=== PATIENT | female | born 1960 | race Caucasian/White ===

== ENCOUNTER 2021-05-11 18:30 | Inpatient (IN) ==
--- NOTE | 2021-05-11 18:44 | Emergency Department Note ---
Impression & Plan Syncope, Hyponatremia ED Provider Note INFORMANT: Patient ED PROVIDER(S): Brodie Doe MD CHIEF COMPLAINT: Syncope PLAN: Disposition: Admitted Condition: Good Outpatient prescription management: none Referral: None MEDICAL DECISION MAKING: Patient presented because of a syncopal episode. She admitted being out in the heat and described some water prodrome. Clinically she appears dry. She was hydrated. Her ECG did not show any acute findings. Blood work was obtained. She was moderately anemic on CBC but this was consistent with prior. She was found to be profoundly hyponatremic. Because of this the patient will need further evaluation and management in the hospital. Consultation was made with Dr. Bashir Snider, [facility] hospitalist service. Patient was evaluated in the ER and admitted. Triage Nursing notes reviewed and agree them. Vital Signs: reviewed and remarkable for no significant abnormalities Differential diagnosis: Vasovagal event, dehydration, infection, hypoglycemia, electrolyte abnormalities, cardiac sources, intracerebral event, pulmonary embolism, seizure, toxicologic, neurologic, as well as other pathologies. Diagnostics interpreted by me: ECG: Twelve-lead ECG reveals a normal sinus rhythm at 64 bpm. Septal Q waves. No ST elevation or depression. Normal axis and QRS. Cardiac Monitoring: Cardiac monitoring ordered by me: The patient was placed on continuous cardiac monitoring and observed. It revealed a normal sinus rhythm at 68 beats per minute without ectopy or evidence of dysrhythmia. Imaging studies: Deferred HPI: The patient is a 60 year old female who presents to the Emergency Room with complaints of syncope. This started this afternoon after being out in the heat for an hour. Pt with family. Apparently they gave a few rescue breaths but not CPR. EMS noted it was a brief <1min episode. Pt didn't eat or drink today. Had a prodrome. The patient also notes the following associated symptoms, none. Last syncopal episode 5 years ago. The patient has been given no medications for relieving factors. Current pain is rated as 0/10. BSG was normal per EMS. Pt denies headache, fevers, chills, diaphoresis, visual changes, neck pain, chest pain, breathing difficulties, nausea, vomiting, abdominal pain, back pain, melena, hematochezia, urinary symptoms, numbness, weakness, lymphadenopathy, rash, or other complaints. ROS: See above HPI for pertinent positives & negatives. A total of 10 systems reviewed and were otherwise negative. PAST MEDICAL HISTORY:See Below , COPD, type 2 DM PAST SURGICAL HISTORY:See Below, FAMILY HISTORY:See Below SOCIAL HISTORY:See Below, +tobacco HOME MEDICATIONS:See Below ALLERGIES:See Below VITALS:See Below PHYSICAL EXAMINATION: GENERAL: Awake, alert, well-appearing, in no distress HENT: Normocephalic, atraumatic. Oropharynx unremarkable. EYES: Normal conjunctiva. Sclera non-icteric. NECK: Inspection normal. Non-tender. Supple. No nuchal rigidity. FROM. No masses. RESPIRATORY: Clear to auscultation. No wheezes. No rales. Normal respiratory effort. CARDIAC: Normal rate. Normal rhythm. No murmurs. No rubs. Extremities warm and well perfused. Pulses equal. No JVD. GI: Soft, non-distended. No tenderness to palpation. No rebound or guarding. No masses. RECTAL: Deferred. MUSCULOSKELETAL: Atraumatic. Chest examination reveals no tenderness. The back is symmetrical on inspection without obvious abnormality. There is no CVA tenderness to palpation. No joint edema. LOWER EXTREMITIES: Calves are equal size bilaterally and non-tender. No edema. No discoloration. NEURO: Normal sensorium. No sensory or motor deficits noted. SKIN: No rash or jaundice noted. Brodie Doe MD Past Med/Surg History Social History Smoking Status: Current every day smoker Tobacco Type: Cigarettes Feels Safe at Home: Yes Allergies Allergies Allergy/AdvReac Type Severity Reaction Status Date / Time Iodinated Contrast Media Allergy Severe reddness, Verified 05/11/21 19:31 swelling Home Meds Home Medications Medication Instructions Recorded Confirmed aspirin 81 mg PO PM #0 10/17/10 05/11/21 gabapentin 800 mg PO TID #0 tab 08/05/12 05/11/21 atorvastatin 40 mg PO PM #0 07/27/15 05/11/21 melatonin 10 mg PO HS #0 07/27/15 05/11/21 pantoprazole 40 mg PO QAM #0 07/27/15 05/11/21 primidone 50 mg PO TID #0 07/27/15 05/11/21 diphenhydramine HCl [Benadryl] 25 mg PO HS PRN #0 tab 06/13/16 05/11/21 mirtazapine 15 mg PO HS #0 06/13/16 05/11/21 biotin 10,000 mcg PO QAM 05/11/21 05/11/21 lisinopril 10 mg PO QAM 05/11/21 05/11/21 metoprolol succinate 25 mg PO QAM 05/11/21 05/11/21 sertraline 50 mg PO HS 05/11/21 05/11/21 Results & Data (ED) Vital Signs Vital Signs - 24 hr 05/11/21 18:35 05/11/21 18:43 05/11/21 19:30 Temperature 36.8 C Temperature Source Oral Pulse Rate 68 68 64 Pulse Rate from SpO2 Sensor 68 64 Pulse Rhythm Regular Pulse Strength Normal Respiratory Rate 21 20 23 Respiratory Effort / Characteristics Non-Labored Spontaneous Respiratory Depth Normal Respiratory Pattern Regular Blood Pressure 165/80 H 165/80 H 144/69 H Blood Pressure Mean 108 108 94 Blood Pressure Position Lying Pulse Oximetry 97 96 97 Oxygen Delivery Method Room Air Sepsis Recent Fever Within 48 Hours No Sepsis New/Unexplained Change in Mental Status N/A Sepsis Action Taken by Nursing No Action Required 05/11/21 19:48 05/11/21 20:00 05/11/21 20:01 Temperature Temperature Source Pulse Rate 65 63 63 Pulse Rate from SpO2 Sensor Pulse Rhythm Pulse Strength Respiratory Rate 21 16 15 Respiratory Effort / Characteristics Respiratory Depth Respiratory Pattern Blood Pressure 159/83 H Blood Pressure Mean 108 Blood Pressure Position Pulse Oximetry Oxygen Delivery Method Sepsis Recent Fever Within 48 Hours Sepsis New/Unexplained Change in Mental Status Sepsis Action Taken by Nursing 05/11/21 20:30 05/11/21 20:31 05/11/21 21:00 Temperature Temperature Source Pulse Rate 66 66 62 Pulse Rate from SpO2 Sensor Pulse Rhythm Pulse Strength Respiratory Rate 23 22 22 Respiratory Effort / Characteristics Respiratory Depth Respiratory Pattern Blood Pressure 167/88 H 149/74 H Blood Pressure Mean 114 99 Blood Pressure Position Pulse Oximetry Oxygen Delivery Method Sepsis Recent Fever Within 48 Hours Sepsis New/Unexplained Change in Mental Status Sepsis Action Taken by Nursing 05/11/21 21:30 05/11/21 22:00 Temperature Temperature Source Pulse Rate 62 59 L Pulse Rate from SpO2 Sensor 62 59 L Pulse Rhythm Pulse Strength Respiratory Rate 17 16 Respiratory Effort / Characteristics Respiratory Depth Respiratory Pattern Blood Pressure 179/84 H 167/78 H Blood Pressure Mean 115 107 Blood Pressure Position Pulse Oximetry 97 97 Oxygen Delivery Method Sepsis Recent Fever Within 48 Hours Sepsis New/Unexplained Change in Mental Status Sepsis Action Taken by Nursing Laboratory Data Result diagrams: 05/11/21 19:24 05/11/21 19:24 Lab Results 05/11/21 05/11/21 05/11/21 Range/Units 19:24 19:24 19:25 WBC 8.19 (4.8-10.8) K/uL RBC 4.38 (4.2-5.4) M/uL Hgb 9.6 L (12.0-16.0) g/dL Hct 29.9 L (37-47) % MCV 68.3 L (80-100) fL MCH 21.9 L (25-34) pg MCHC 32.1 (32-36) g/dL RDW Std Deviation 42.9 (36.4-46.3) fL RDW Coeff of Lee 17.0 H (11.5-14.5) % Plt Count 260 (130-400) K/uL MPV 8.9 (7.4-10.4) fL Immature Gran % (Auto) 0.2 % Neut % (Auto) 71.4 % Lymph % (Auto) 19.3 % Norton % (Auto) 7.9 % Eos % (Auto) 1.0 % Baso % (Auto) 0.2 % Neut # (Auto) 5.84 (1.4-6.5) K/uL Lymph # (Auto) 1.58 (1.2-3.4) K/uL Norton # (Auto) 0.65 H (0.11-0.59) K/uL Eos # (Auto) 0.08 (0-0.5) K/uL Baso # (Auto) 0.02 (0-0.2) K/uL Immature Gran # (Auto) 0.02 (0.00-0.02) K/uL Microcytosis Present Sodium 123 L (136-145) mmol/L Potassium 3.5 (3.5-5.1) mmol/L Chloride 88 L (98-107) mmol/L Carbon Dioxide 27 (21-32) mmol/L Anion Gap 8.0 (3-11) BUN 5 L (7-18) mg/dl Creatinine 0.70 (0.6-1.2) mg/dl Est Cr Clr Drug Dosing 75.9 ml/min Est GFR ( Amer) 108.4 ml/min Est GFR (Non-Af Amer) 93.5 ml/min BUN/Creatinine Ratio 6.6 L (10-20) Glucose 96 (70-99) mg/dl Osmolality 248 L (280-300) mOsm/kg Calcium 7.4 L (8.5-10.1) mg/dl Magnesium 1.6 L (1.8-2.4) mg/dl Total Bilirubin 0.3 (0.2-1) mg/dl AST 17 (15-37) U/L ALT 12 (12-78) U/L Alkaline Phosphatase 123 H (45-117) U/L Total Protein 6.1 L (6.4-8.2) gm/dl Albumin 3.0 L (3.4-5.0) gm/dl Globulin 3.1 (2.5-4.0) gm/dl Albumin/Globulin Ratio 1.0 (0.9-2) TSH 1.610 (0.300-4.500) uIu/ml Urine Color Urine Appearance (Clear) Urine pH (4.5-7.5) Ur Specific [place] (1.000-1.030) Urine Protein (Negative) Urine Glucose (UA) (Negative) Urine Ketones (Negative) Urine Blood (Negative) Urine Nitrite (Negative) Urine Bilirubin (Negative) Urine Urobilinogen (Negative) Ur Leukocyte Esterase (Negative) Urine WBC (Auto) (0-5) /hpf Urine RBC (Auto) (0-4) /hpf U Hyaline Cast (Auto) (0-5) /lpf U Epithel Cells (Auto) (0-5) /lpf Urine Bacteria (Auto) (Negative) Urine Osmolality (500-800) mOsm/kg Ur Random Sodium mmol/L COVID-19 Eval Order SARS-CoV-2 (PCR) (Negative) 05/11/21 05/11/21 05/11/21 Range/Units 19:50 19:50 19:50 WBC (4.8-10.8) K/uL RBC (4.2-5.4) M/uL Hgb (12.0-16.0) g/dL Hct (37-47) % MCV (80-100) fL MCH (25-34) pg MCHC (32-36) g/dL RDW Std Deviation (36.4-46.3) fL RDW Coeff of Lee (11.5-14.5) % Plt Count (130-400) K/uL MPV (7.4-10.4) fL Immature Gran % (Auto) % Neut % (Auto) % Lymph % (Auto) % Norton % (Auto) % Eos % (Auto) % Baso % (Auto) % Neut # (Auto) (1.4-6.5) K/uL Lymph # (Auto) (1.2-3.4) K/uL Norton # (Auto) (0.11-0.59) K/uL Eos # (Auto) (0-0.5) K/uL Baso # (Auto) (0-0.2) K/uL Immature Gran # (Auto) (0.00-0.02) K/uL Microcytosis Sodium (136-145) mmol/L Potassium (3.5-5.1) mmol/L Chloride (98-107) mmol/L Carbon Dioxide (21-32) mmol/L Anion Gap (3-11) BUN (7-18) mg/dl Creatinine (0.6-1.2) mg/dl Est Cr Clr Drug Dosing ml/min Est GFR ( Amer) ml/min Est GFR (Non-Af Amer) ml/min BUN/Creatinine Ratio (10-20) Glucose (70-99) mg/dl Osmolality (280-300) mOsm/kg Calcium (8.5-10.1) mg/dl Magnesium (1.8-2.4) mg/dl Total Bilirubin (0.2-1) mg/dl AST (15-37) U/L ALT (12-78) U/L Alkaline Phosphatase (45-117) U/L Total Protein (6.4-8.2) gm/dl Albumin (3.4-5.0) gm/dl Globulin (2.5-4.0) gm/dl Albumin/Globulin Ratio (0.9-2) TSH (0.300-4.500) uIu/ml Urine Color Yellow Urine Appearance Clear (Clear) Urine pH 7.0 (4.5-7.5) Ur Specific [place] 1.005 (1.000-1.030) Urine Protein Negative (Negative) Urine Glucose (UA) Negative (Negative) Urine Ketones Negative (Negative) Urine Blood Negative (Negative) Urine Nitrite Negative (Negative) Urine Bilirubin Negative (Negative) Urine Urobilinogen Negative (Negative) Ur Leukocyte Esterase 2+ H (Negative) Urine WBC (Auto) 10-30 H (0-5) /hpf Urine RBC (Auto) 0-4 (0-4) /hpf U Hyaline Cast (Auto) 1-5 (0-5) /lpf U Epithel Cells (Auto) >30 H (0-5) /lpf Urine Bacteria (Auto) 1+ H (Negative) Urine Osmolality 57 L (500-800) mOsm/kg Ur Random Sodium 19 mmol/L COVID-19 Eval Order SARS-CoV-2 (PCR) (Negative) 05/11/21 05/11/21 Range/Units 20:00 20:00 WBC (4.8-10.8) K/uL RBC (4.2-5.4) M/uL Hgb (12.0-16.0) g/dL Hct (37-47) % MCV (80-100) fL MCH (25-34) pg MCHC (32-36) g/dL RDW Std Deviation (36.4-46.3) fL RDW Coeff of Lee (11.5-14.5) % Plt Count (130-400) K/uL MPV (7.4-10.4) fL Immature Gran % (Auto) % Neut % (Auto) % Lymph % (Auto) % Norton % (Auto) % Eos % (Auto) % Baso % (Auto) % Neut # (Auto) (1.4-6.5) K/uL Lymph # (Auto) (1.2-3.4) K/uL Norton # (Auto) (0.11-0.59) K/uL Eos # (Auto) (0-0.5) K/uL Baso # (Auto) (0-0.2) K/uL Immature Gran # (Auto) (0.00-0.02) K/uL Microcytosis Sodium (136-145) mmol/L Potassium (3.5-5.1) mmol/L Chloride (98-107) mmol/L Carbon Dioxide (21-32) mmol/L Anion Gap (3-11) BUN (7-18) mg/dl Creatinine (0.6-1.2) mg/dl Est Cr Clr Drug Dosing ml/min Est GFR ( Amer) ml/min Est GFR (Non-Af Amer) ml/min BUN/Creatinine Ratio (10-20) Glucose (70-99) mg/dl Osmolality (280-300) mOsm/kg Calcium (8.5-10.1) mg/dl Magnesium (1.8-2.4) mg/dl Total Bilirubin (0.2-1) mg/dl AST (15-37) U/L ALT (12-78) U/L Alkaline Phosphatase (45-117) U/L Total Protein (6.4-8.2) gm/dl Albumin (3.4-5.0) gm/dl Globulin (2.5-4.0) gm/dl Albumin/Globulin Ratio (0.9-2) TSH (0.300-4.500) uIu/ml Urine Color Urine Appearance (Clear) Urine pH (4.5-7.5) Ur Specific [place] (1.000-1.030) Urine Protein (Negative) Urine Glucose (UA) (Negative) Urine Ketones (Negative) Urine Blood (Negative) Urine Nitrite (Negative) Urine Bilirubin (Negative) Urine Urobilinogen (Negative) Ur Leukocyte Esterase (Negative) Urine WBC (Auto) (0-5) /hpf Urine RBC (Auto) (0-4) /hpf U Hyaline Cast (Auto) (0-5) /lpf U Epithel Cells (Auto) (0-5) /lpf Urine Bacteria (Auto) (Negative) Urine Osmolality (500-800) mOsm/kg Ur Random Sodium mmol/L COVID-19 Eval Order Covid19 at [facility] SARS-CoV-2 (PCR) NEGATIVE (Negative) Administered Medications Discontinued Medications Sodium Chloride (Nss 1000ml) 1,000 mls @ 999 mls/hr IV .[id number] Stop: 05/11/21 20:00 Last Infusion: 05/11/21 20:21 Dose: 0 mls/hr Documented by: [id number] Admin: 05/11/21 19:10 Dose: 999 mls/hr Documented by: [id number] Magnesium Sulfate/Dextrose (Magnesium Sulfate / D5w) 1 gm in 100 mls @ 100 mls/hr IV NOW STA Stop: 05/11/21 21:14 Last Infusion: 05/11/21 21:05 Dose: 0 mls/hr Documented by: [id number] Admin: 05/11/21 20:20 Dose: 100 mls/hr Documented by: [id number] Lisinopril (Lisinopril 5 Mg Tab) 10 mg PO NOW STA Stop: 05/11/21 20:54 Last Admin: 05/11/21 21:07 Dose: 10 mg Documented by: [id number] Discharge Plan Visit Data Chief Complaint: Syncope ED Provider: Brodie Doe Discharge Problem: Syncope, Hyponatremia Forms Stand Alone Forms: [facility] Prescriptions Prescriptions: No Action aspirin 81 mg Tablet,Delayed Release (Dr/Ec) 81 mg PO PM Qty: 0 RF: 0 gabapentin 800 mg Tablet 800 mg PO TID Qty: 0 RF: 0 atorvastatin 40 mg Tablet 40 mg PO PM Qty: 0 RF: 0 primidone 50 mg Tablet 50 mg PO TID Qty: 0 RF: 0 pantoprazole 40 mg Tablet,Delayed Release (Dr/Ec) 40 mg PO QAM Qty: 0 RF: 0 melatonin 10 mg Tablet 10 mg PO HS Qty: 0 RF: 0 diphenhydramine HCl [Benadryl] 25 mg Capsule 25 mg PO HS PRN (Reason: Sleep) Qty: 0 RF: 0 mirtazapine 15 mg Tablet 15 mg PO HS Qty: 0 RF: 0 sertraline 100 mg tablet 50 mg PO HS RF: 0 lisinopril 10 mg tablet 10 mg PO QAM RF: 0 metoprolol succinate 25 mg tablet extended release 24 hr 25 mg PO QAM RF: 0 biotin 10,000 mcg Tablet,Disintegrating 10,000 mcg PO QAM RF: 0
[2021-05-11] MEDS ORDERED: SODIUM CHLORIDE 0.9% 1000ML 1,000 ML IV SCH (19:00)
[2021-05-11 19:32] LABS: Basophils # (auto) 0.02 K/uL (0-0.2); Basophils % (auto) 0.2 %; Eosinophils # (auto) 0.08 K/uL (0-0.5); Hematocrit (blood only) 29.9 % (37-47); Hemoglobin 9.6 g/dL (12.0-16.0); Immature Granulocytes # (auto) 0.02 K/uL (0.00-0.02); Immature Granulocytes % (auto) 0.2 %; Lymphocytes # (auto) 1.58 K/uL (1.2-3.4); Lymphocytes % (auto) 19.3 %; Mean Corpuscular Hemoglobin 21.9 pg (25-34); Mean Corpuscular Hgb Conc 32.1 g/dL (32-36); Mean Corpuscular Volume 68.3 fL (80-100); Mean Platelet Volume 8.9 fL (7.4-10.4); Monocytes # (auto) 0.65 K/uL (0.11-0.59); Monocytes % (auto) 7.9 %; Neutrophils # (auto) 5.84 K/uL (1.4-6.5); Neutrophils % (auto) 71.4 %; Platelet Count 260 K/uL (130-400); RDW Standard Deviation 42.9 fL (36.4-46.3); Red Blood Count 4.38 M/uL (4.2-5.4); White Blood Count 8.19 K/uL (4.8-10.8)
[2021-05-11 19:55] LABS: BUN Creatinine Ratio 6.6 (10-20); Calcium 7.4 mg/dl (8.5-10.1); Creatinine Clr Calc Pharmacy 75.9 ml/min; Est GFR (African American) 108.4 ml/min; Est GFR (Non-African American) 93.5 ml/min; Magnesium 1.6 mg/dl (1.8-2.4); Potassium 3.5 mmol/L (3.5-5.1)
[2021-05-11 20:02] LABS: Microcytosis Present
[2021-05-11 20:06] LABS: Bilirubin,Total 0.3 mg/dl (0.2-1); Globulin 3.1 gm/dl (2.5-4.0); Thyroid Stimulating Hormone 1.61 uIu/ml (0.300-4.500); Total Protein 6.1 gm/dl (6.4-8.2)
[2021-05-11] MEDS ORDERED: MAGNESIUM SULFATE / D5W 1 GM/100 ML BAG IV STA (20:15)
[2021-05-11] MEDS ORDERED: lisinopril 5 MG TAB PO STA (20:53)
[2021-05-11 22:33] LABS: Appearance Urine Clear (Clear); Bacteria Urine Automated 1+ (Negative); Bilirubin Urine Negative (Negative); Blood Urine Negative (Negative); Color Urine Yellow; Epithelial Cell Urine Auto >30 /lpf (0-5); Glucose Urine UA Negative (Negative); Ketones Urine Negative (Negative); Leukocyte Esterase Urine 2+ (Negative); Nitrite Urine Negative (Negative); Protein Urine Negative (Negative); RBC Urine Automated 0-4 /hpf (0-4); Specific Gravity Urine 1.005 (1.000-1.030); Urobilinogen Urine Negative (Negative)
--- NOTE | 2021-05-11 23:32 | History & Physical Report ---
Date of Service May 11, 2021 Assessment & Plan (1) Syncope: Similar circumstances to 2016 confinement Rule out recurrent orthostasis, cardiac pathology Acute on chronic hyponatremia Possible SIADH concomitant psychogenic polydipsia SSRI intake contributory hypertension, elevated hyperlipidemia, on statin Rx DM2 diet-controlled, well-controlled as of recent hemoglobin A1c of 6.20 February 2021 essential tremor, stable on primidone chronic anemia, hemoglobin at baseline ongoing tobacco abuse Medical telemetry Check orthostatic vitals, update TTE for recurrent syncope Follow serum sodium, fluid restriction Hyponatremia work-up Nephrology consult Re: Acute on chronic hyponatremia Hold SSRI for now ISS BG goal 1 10-1 40 Nicotine patch as needed DVT prophylaxis. Lovenox subcu Full code Patient daughter requesting updates from providers. Mr. Shade Varghese, contact #[phone]. Text document was generated using [employer] voice recognition software. It may contain grammatical or spelling errors. Kindly contact undersigned for clarification of any documentation item in question. History of Present Illness Chief Complaint: Syncope Primary Care Provider: Ella Bhatt, History obtained from patient, family, and records. Medical history significant for hypertension, hyperlipidemia, DM2 diet-con trolled, GERD, essential tremor, chronic hyponatremia, chronic anemia (baseline hemoglobin 9), ongoing tobacco abuse. Last confinement May 2016 for syncope and hyponatremia, possible SIADH. Patient noted to be hypotensive at the ER as per documentation. TTE, EEG unremarkable. Initial serum sodium was noted to be 124. Patient admits to drinking large volumes of free water and ice tea. Patient was with her daughters this afternoon when she had another witnessed syncopal event. Patient was out in the heat for about an hour prior to event as per documentation. Patient family not sure if patient lost pulse or breathing. No witnessed seizures. No incontinence. No abdominal pain, diarrhea, black/bloody stools, dysuria symptoms. Patient admits to drinking more than 48 ounces of water daily along with ice consumption. Patient woke up after 1 minute slightly confused. Patient denies chest pain, S OB. Patient brought to the ER by EMS. Medical History as above Surgical History : Hysteroscopy, ovarian cyst removal, tonsillectomy/adenoidectomy, strabismus surgery Family History : Heart disease, bipolar disorder, stroke Personal/Social history : Half pack daily, no EtOH intake, prior work as a [employer] Allergies Allergy/AdvReac Type Severity Reaction Status Date / Time Iodinated Contrast Media Allergy Severe reddness, Verified 05/11/21 19:31 swelling Home Medications Medication Instructions Recorded Confirmed Type aspirin 81 mg PO PM #0 10/17/10 05/11/21 History gabapentin 800 mg PO TID #0 tab 08/05/12 05/11/21 History atorvastatin 40 mg PO PM #0 07/27/15 05/11/21 History melatonin 10 mg PO HS #0 07/27/15 05/11/21 History pantoprazole 40 mg PO QAM #0 07/27/15 05/11/21 History primidone 50 mg PO TID #0 07/27/15 05/11/21 History diphenhydramine HCl [Benadryl] 25 mg PO HS PRN #0 tab 06/13/16 05/11/21 History mirtazapine 15 mg PO HS #0 06/13/16 05/11/21 History biotin 10,000 mcg PO QAM 05/11/21 05/11/21 History lisinopril 10 mg PO QAM 05/11/21 05/11/21 History metoprolol succinate 25 mg PO QAM 05/11/21 05/11/21 History sertraline 50 mg PO HS 05/11/21 05/11/21 History Past Med/Surg History Medical History Anemia Asthma Chronic hyponatremia Diabetes mellitus, type 2 diet controlled 04/2021 Essential tremor GERD (gastroesophageal reflux disease) Hyperlipidemia Hypertension Major depressive disorder Tobacco abuse Family History Father Hypertension Heart disease Social History Smoking Status: Current every day smoker Tobacco Type: Cigarettes Second Hand Exposure: No; Do You Dip or Chew Tobacco: No; Tobacco Cessation Education Requested by Patient: No Hx Alcohol Use: No Hx Substance Use: No Preferred Language: Romansh Communication Ability: Effective Mix Technician Required: No Beliefs That Will Affect Care: None Current Living Situation: Family Feels Safe at Home: Yes Safety Concerns: Feels Safe At This Time Assistive Devices: Glasses Review of Systems Review of Systems: As per HPI, all 10 systems reviewed, all other ROS negative Physical Exam Physical Exam: GENERAL: Comfortable, pleasant, no respiratory distress SKIN: Pallor, warm HEENT: Bespectacled, Pale palpebral conjunctivae, no ptosis, dry buccal mucosa NECK : Supple, no tenderness CHEST : CTA, no tenderness HEART : RRR, no obvious murmurs ABDOMEN: No distention, nontender EXTREMITIES : No LE swelling/tenderness, no other conspicuous deformities noted NEUROLOGIC : Coherent, no facial asymmetry, no other gross focality Results & Data Results & Data ([facility]) Vital Signs (Past 12 Hours) Vital Signs Temp Pulse Resp BP Pulse Ox 05/11/21 22:00 59 L 16 167/78 H 97 05/11/21 21:30 62 17 179/84 H 97 05/11/21 21:00 62 22 149/74 H 05/11/21 20:31 66 22 05/11/21 20:30 66 23 167/88 H 05/11/21 20:01 63 15 05/11/21 20:00 63 16 159/83 H 05/11/21 19:48 65 21 05/11/21 19:30 64 23 144/69 H 97 05/11/21 18:43 36.8 C 68 20 165/80 H 96 05/11/21 18:35 68 21 165/80 H 97 Laboratory Results Laboratory Results WBC 8.19 K/uL (4.8-10.8) 05/11/21 19:24 RBC 4.38 M/uL (4.2-5.4) 05/11/21 19:24 Hgb 9.6 g/dL (12.0-16.0) L 05/11/21 19:24 Hct 29.9 % (37-47) L 05/11/21 19:24 MCV 68.3 fL (80-100) L 05/11/21 19:24 MCH 21.9 pg (25-34) L 05/11/21 19:24 MCHC 32.1 g/dL (32-36) 05/11/21 19:24 RDW Std Deviation 42.9 fL (36.4-46.3) 05/11/21 19:24 RDW Coeff of Lee 17.0 % (11.5-14.5) H 05/11/21 19:24 Plt Count 260 K/uL (130-400) 05/11/21 19:24 MPV 8.9 fL (7.4-10.4) 05/11/21 19:24 Immature Gran % (Auto) 0.2 % 05/11/21 19:24 Neut % (Auto) 71.4 % 05/11/21 19:24 Lymph % (Auto) 19.3 % 05/11/21 19:24 Cass % (Auto) 7.9 % 05/11/21 19:24 Eos % (Auto) 1.0 % 05/11/21 19:24 Baso % (Auto) 0.2 % 05/11/21 19:24 Neut # (Auto) 5.84 K/uL (1.4-6.5) 05/11/21 19:24 Lymph # (Auto) 1.58 K/uL (1.2-3.4) 05/11/21 19:24 Cass # (Auto) 0.65 K/uL (0.11-0.59) H 05/11/21 19:24 Eos # (Auto) 0.08 K/uL (0-0.5) 05/11/21 19:24 Baso # (Auto) 0.02 K/uL (0-0.2) 05/11/21 19:24 Immature Gran # (Auto) 0.02 K/uL (0.00-0.02) 05/11/21 19:24 Microcytosis Present 05/11/21 19:24 Sodium 123 mmol/L (136-145) L 05/11/21 19:24 Potassium 3.5 mmol/L (3.5-5.1) 05/11/21 19:24 Chloride 88 mmol/L (98-107) L 05/11/21 19:24 Carbon Dioxide 27 mmol/L (21-32) 05/11/21 19:24 Anion Gap 8.0 (3-11) 05/11/21 19:24 BUN 5 mg/dl (7-18) L 05/11/21 19:24 Creatinine 0.70 mg/dl (0.6-1.2) 05/11/21 19:24 Est Cr Clr Drug Dosing 75.9 ml/min 05/11/21 19:24 Est GFR ( Amer) 108.4 ml/min 05/11/21 19:24 Est GFR (Non-Af Amer) 93.5 ml/min 05/11/21 19:24 BUN/Creatinine Ratio 6.6 (10-20) L 05/11/21 19:24 Glucose 96 mg/dl (70-99) 05/11/21 19:24 Osmolality 248 mOsm/kg (280-300) L 05/11/21 19:25 Calcium 7.4 mg/dl (8.5-10.1) L 05/11/21 19:24 Magnesium 1.6 mg/dl (1.8-2.4) L 05/11/21 19:24 Total Bilirubin 0.3 mg/dl (0.2-1) 05/11/21 19:24 AST 17 U/L (15-37) 05/11/21 19:24 ALT 12 U/L (12-78) 05/11/21 19:24 Alkaline Phosphatase 123 U/L (45-117) H 05/11/21 19:24 Total Protein 6.1 gm/dl (6.4-8.2) L 05/11/21 19:24 Albumin 3.0 gm/dl (3.4-5.0) L 05/11/21 19:24 Globulin 3.1 gm/dl (2.5-4.0) 05/11/21 19:24 Albumin/Globulin Ratio 1.0 (0.9-2) 05/11/21 19:24 TSH 1.610 uIu/ml (0.300-4.500) 05/11/21 19:24 Urine Color Yellow 05/11/21 19:50 Urine Appearance Clear (Clear) 05/11/21 19:50 Urine pH 7.0 (4.5-7.5) 05/11/21 19:50 Ur Specific [place] 1.005 (1.000-1.030) 05/11/21 19:50 Urine Protein Negative (Negative) 05/11/21 19:50 Urine Glucose (UA) Negative (Negative) 05/11/21 19:50 Urine Ketones Negative (Negative) 05/11/21 19:50 Urine Blood Negative (Negative) 05/11/21 19:50 Urine Nitrite Negative (Negative) 05/11/21 19:50 Urine Bilirubin Negative (Negative) 05/11/21 19:50 Urine Urobilinogen Negative (Negative) 05/11/21 19:50 Ur Leukocyte Esterase 2+ (Negative) H 05/11/21 19:50 Urine WBC (Auto) 10-30 /hpf (0-5) H 05/11/21 19:50 Urine RBC (Auto) 0-4 /hpf (0-4) 05/11/21 19:50 U Hyaline Cast (Auto) 1-5 /lpf (0-5) 05/11/21 19:50 U Epithel Cells (Auto) >30 /lpf (0-5) H 05/11/21 19:50 Urine Bacteria (Auto) 1+ (Negative) H 05/11/21 19:50 Urine Osmolality 57 mOsm/kg (500-800) L 05/11/21 19:50 Ur Random Sodium 19 mmol/L 05/11/21 19:50 COVID-19 Eval Order Covid19 at [facility] 05/11/21 20:00 SARS-CoV-2 (PCR) NEGATIVE (Negative) 05/11/21 20:00 Diagnostic Findings EKG as per my interpretation : Rate 65, NSR, normal axis, septal infarct, T wave abnormality septal leads
[2021-05-12] MEDS ORDERED: PROMETHAZINE HCL 6.25 MG in SODIUM CHLORIDE 0.9% 50 ML IV PRN (01:12)
[2021-05-12] MEDS ORDERED: GLUCAGON FOR INJ 1 MG VIAL SQ PRN (01:12)
[2021-05-12] MEDS ORDERED: ACETAMINOPHEN 325 MG TAB PO PRN (01:12)
[2021-05-12] MEDS ORDERED: GLUCOSE 10 TABS/TUBE PO PRN (01:12)
[2021-05-12] MEDS ORDERED: DEXTROSE 50% 50 ML SYRINGE IV PRN (01:12)
[2021-05-12] MEDS ORDERED: CARBOHYDRATES FOR HYPOGLYCEMIA PO PRN (01:12)
[2021-05-12] MEDS ORDERED: GLUCOSE 40% GEL 15 GM TUBE PO PRN (01:12)
[2021-05-12] MEDS ORDERED: POTASSIUM CHLORIDE 40 MEQ in DEXTROSE 5% 1,000 ML IV ONE (02:33)
[2021-05-12] MEDS: INSULIN ASPART 100 UNITS/ML 3 ML PEN SC SCH ×5 (03:51→21:37)
[2021-05-12 08:33] LABS: Hematocrit (blood only) 32.3 % (37-47); Hemoglobin 10.3 g/dL (12.0-16.0); Mean Corpuscular Hemoglobin 21.5 pg (25-34); Mean Corpuscular Hgb Conc 31.9 g/dL (32-36); Mean Corpuscular Volume 67.4 fL (80-100); Mean Platelet Volume 9.1 fL (7.4-10.4); Platelet Count 310 K/uL (130-400); RDW Coefficient of Variation 17.6 % (11.5-14.5); RDW Standard Deviation 43.3 fL (36.4-46.3); Red Blood Count 4.79 M/uL (4.2-5.4); White Blood Count 3.13 K/uL (4.8-10.8)
[2021-05-12 08:59] LABS: Calcium 8.8 mg/dl (8.5-10.1); Creatinine Clr Calc Pharmacy 67.3 ml/min; Est GFR (African American) 93.6 ml/min; Est GFR (Non-African American) 80.8 ml/min; Magnesium 2.6 mg/dl (1.8-2.4)
[2021-05-12] MEDS ORDERED: lisinopril 10 MG TAB PO SCH (09:00)
[2021-05-12 09:01] LABS: Eosinophils # (auto) 0.02 K/uL (0-0.5); Eosinophils % (auto) 0.6 %; Immature Granulocytes # (auto) 0.01 K/uL (0.00-0.02); Immature Granulocytes % (auto) 0.3 %; Lymphocytes # (auto) 1.15 K/uL (1.2-3.4); Lymphocytes % (auto) 36.7 %; Microcytosis Present; Monocytes # (auto) 0.37 K/uL (0.11-0.59); Monocytes % (auto) 11.8 %; Neutrophils # (auto) 1.58 K/uL (1.4-6.5); Neutrophils % (auto) 50.6 %; Target Cells 1+
[2021-05-12] MEDS: GABAPENTIN 800 MG TAB PO SCH ×3 (09:19→20:22)
[2021-05-12] MEDS: PANTOprazole 40 MG TAB PO SCH (09:20)
[2021-05-12] MEDS: METOPROLOL SUCC 25MG EXT REL TAB PO SCH (09:21)
[2021-05-12] MEDS: ENOXAPARIN INJ 30 MG/0.3 ML SYR SQ SCH (09:22)
[2021-05-12] MEDS: PRIMIDONE 50 MG TAB PO SCH ×3 (09:22→20:22)
[2021-05-12 10:04] LABS: Potassium 4.1 mmol/L (3.5-5.1)
--- NOTE | 2021-05-12 10:20 | Nephrology Consultation ---
Date of Consultation May 12, 2021 Assessment & Plan (1) Hyponatremia: acute on chronic hyponatremia, correcting too fast. unlikely to have role in syncope; may have role in ambulatory dysfunction/fall though. presenting sNa 123 on 05/11 at 1930, up to 133 this AM at 0800; on D5W w/ 40 mEq K at low rate. TSH wnl. >goal sNa is 129 at noon and hold that value until this evening > upped D5W to 125 mL /hr and lowered K to 20 mEq/L in IVF >> was 131 by 1600 >> will lower IVF rate to 80 ml/hr; same components -cont strict I/O -repeat full bmp for noon, 1600 ordered stat -keep FR for now at 2L; may need to adjust Present on Admission?: Yes (2) Hypokalemia: mild at presentation, improving and rightly normalized to improve Na correction and minimize cardiac arrhythmias if present Present on Admission?: Yes (3) Syncope: w/u per primary service Present on Admission?: Yes History of Present Illness Reason for Consultation: hyponatremia Requesting Physician: Dr Snider Attending Physician: Guille Snow DO History of Present Illness 60 y/o F admitted last evening after witnessed syncope and found to have sNa 123 at 1930. PMH includes active tobacco abuse about 2-3 PPD (rolls her own; difficult to count), depression/anxiety, HTN, HL. Chronic hyponatremia w/ sNa in epic usually in low 130s 2015 through February 2021 w/ admission 2016 for same. Rep ortedly has had similar syncopal episodes in [place] past, including at work 2 years back and on stairs; cannot recall if these were a/w hyponatremia. 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 she was at a family event and slumped over in her chair, stopped breathing, LOC x 1 minute per family. Daughter at bedside today and sister on phone at my eval. at baseline pt has been drinking lots of fluids (about a gallon) daily often iced tea and some water; eats minimally - maybe a TV dinner daily. not for lack of hunger or inability to get food she states; denies weight loss. no EtOH. no increased abd girth; no sob; no edema. Admission data remarkable for sOsm 248, uOsm 57, Jeff 19, K 3.5. Allergies Allergy/AdvReac Type Severity Reaction Status Date / Time Iodinated Contrast Media Allergy Severe reddness, Verified 05/11/21 19:31 swelling Home Medications Medication Instructions Recorded Confirmed Type aspirin 81 mg PO PM #0 10/17/10 05/11/21 History gabapentin 800 mg PO TID #0 tab 08/05/12 05/11/21 History atorvastatin 40 mg PO PM #0 07/27/15 05/11/21 History melatonin 10 mg PO HS #0 07/27/15 05/11/21 History pantoprazole 40 mg PO QAM #0 07/27/15 05/11/21 History primidone 50 mg PO TID #0 07/27/15 05/11/21 History diphenhydramine HCl [Benadryl] 25 mg PO HS PRN #0 tab 06/13/16 05/11/21 History mirtazapine 15 mg PO HS #0 06/13/16 05/11/21 History biotin 10,000 mcg PO QAM 05/11/21 05/11/21 History lisinopril 10 mg PO QAM 05/11/21 05/11/21 History metoprolol succinate 25 mg PO QAM 05/11/21 05/11/21 History sertraline 50 mg PO HS 05/11/21 05/11/21 History Patient History Medical History Anemia Asthma Chronic hyponatremia Diabetes mellitus, type 2 diet controlled 04/2021 Essential tremor GERD (gastroesophageal reflux disease) Hyperlipidemia Hypertension Major depressive disorder Tobacco abuse Family History Father Hypertension Heart disease Social History Smoking Status: Current every day smoker Tobacco Type: Cigarettes Second Hand Exposure: No; Do You Dip or Chew Tobacco: No; Tobacco Cessation Education Requested by Patient: No Hx Alcohol Use: No Hx Substance Use: No Preferred Language: [place] Communication Ability: Effective [employer] Required: No Beliefs That Will Affect Care: None Current Living Situation: Family Feels Safe at Home: Yes Safety Concerns: Feels Safe At This Time Assistive Devices: None Review of Systems Review of Systems: All systems reviewed & are unremarkable except as noted in HPI & below Physical Exam Constitutional: well developed and well nourished; no acute distress on RA, smal framed Eyes: EOM intact bilaterally ENMT: Ears: no external ear abnormality Nose: no external nose abnormality Mouth: + dry oral mucous membranes Neck: no nuchal rigidity Respiratory: normal respiratory effort Auscultation: + diminished lung sounds and + crackles (bibasilar) Cardiovascular: RRR, no murmur, no edema Gastrointestinal (Abdomen): Inspection/Auscultation: normal bowel sounds Percussion/Palpation: abdomen soft; abdomen nontender Musculoskeletal: Extremities: strength 5/5 throughout Skin: no rashes, warm and dry Neurologic: cabrera, fluent speech, no tremor Psychiatric: Orientation: alert and oriented x 3 Results & Data ([facility]) Vital Signs (Past 12 Hours) Vital Signs Temp Pulse Pulse Pulse Resp BP BP 05/12/21 08:00 37 C 69 18 129/79 05/12/21 04:06 37.0 C 63 18 114/62 05/12/21 02:40 36.5 C 76 16 133/74 05/12/21 01:58 59 L 05/12/21 00:36 62 18 114/74 Pulse Ox 05/12/21 08:00 96 05/12/21 04:06 100 05/12/21 02:40 98 05/12/21 01:58 05/12/21 00:36 Laboratory Results 05/12/21 08:10 05/12/21 08:10 admission labs and urine indices as above (1) Syncope Syncope type: unspecified Qualified Code(s): R55 - Syncope and collapse
[2021-05-12] MEDS: POTASSIUM CHLORIDE 20 MEQ in DEXTROSE 5% 1,000 ML IV SCH ×2 (10:55→19:13)
--- NOTE | 2021-05-12 11:57 | Hospitalist Progress Note ---
Date of Service May 12, 2021 Assessment & Plan (1) Syncope: Similar circumstances to 2016 Rule out recurrent orthostasis, cardiac pathology Acute on chronic hyponatremia Possible SIADH concomitant psychogenic polydipsia SSRI intake contributory hypertension, elevated hyperlipidemia, on statin Rx DM2 diet-controlled, well-controlled as of recent hemoglobin A1c of 6.20 February 2021 essential tremor, stable on primidone chronic anemia, hemoglobin at baseline ongoing tobacco abuse Medical telemetry Check orthostatic vitals, update TTE for recurrent syncope Follow serum sodium, fluid restriction Hyponatremia work-up Nephrology on case: Acute on chronic hyponatremia Hold SSRI for now ISS BG goal 1 10-1 40 Nicotine patch as needed DVT prophylaxis. Lovenox subcu Full code Labs checked ROS-No Headache, No Visual Changes, No Nausea, No Vomiting, No Fever, No Chills, No Neck Pain or Stiffness, No Chest Pain, No Palpitations, No SOB, No HERNANDEZ, No Cough, No Sputum, No Wheezing, No Abdominal Pain, No Diarrhea, No Hematemesis, No Hemoptysis, No Unexpected Weight Loss, No Flank pain, No Melena, No Hematochezia, No Frequency, No Urgency, No Burning, No Hematuria, No Rashes, No Diaphoresis. Appetite is Normal Physical Exam Gen-AAO x 3, NAD, Afebrile Head-NCAT, EOMI, PERRLA, Anicteric Sclera, No Posterior Pharyngeal Erythema Neck-Supple, No JVD, No Thyromegaly, No Masses, No LAD, No Bruits Lungs-Clear to Auscultation Bilaterally, No Rales, No Rhonchi, No Wheezing, No Crepitus Chest-No S4, +S1, +S2, No S3, No Murmurs, No Rubs, No Gallops, No Ectopy Abdomen-Soft, Bowel Sounds Present, Non Tender, Non Distended, No Hepatomegaly, No Splenomegaly, No Palpable Masses, No Rebound, No Rigidity, No Guarding Musculoskeletal-Full Range of Motion Bilaterally, No CVAT Extremities-No Cyanosis, No Clubbing, No Edema Nuero-Cranial Nerves II-XII grossly intact, Motor WNL, DTRs WNL, Strength WNL, Non Focal Psych-Normal Mood Admission and Anticipated Discharge Date Admission Date: May 11, 2021 Results & Data Results & Data ([facility]) Vital Signs (Past 12 Hours) Vital Signs Temp Pulse Pulse Pulse Resp BP BP 05/12/21 11:24 36.8 C 64 18 116/67 05/12/21 08:00 37 C 69 18 05/12/21 04:06 37.0 C 63 18 05/12/21 02:40 36.5 C 76 16 05/12/21 01:58 59 L 05/12/21 00:36 62 18 114/74 BP Pulse Ox 05/12/21 11:24 94 05/12/21 08:00 129/79 96 05/12/21 04:06 114/62 100 05/12/21 02:40 133/74 98 05/12/21 01:58 05/12/21 00:36 (1) Syncope Syncope type: unspecified Qualified Code(s): R55 - Syncope and collapse
[2021-05-12 12:19] LABS: BUN Creatinine Ratio 6.6 (10-20); Calcium 8.7 mg/dl (8.5-10.1); Est GFR (African American) 96.6 ml/min; Est GFR (Non-African American) 83.3 ml/min; Potassium 4.3 mmol/L (3.5-5.1)
--- NOTE | 2021-05-12 14:11 | Electrocardiogram Report ---
Test Reason : Blood Pressure : / mmHG Vent. Rate : 064 BPM Atrial Rate : 064 BPM P-R Int : 192 ms QRS Dur : 090 ms QT Int : 460 ms P-R-T Axes : 072 003 057 degrees QTc Int : 474 ms Normal sinus rhythm Septal infarct (cited on or before 13-JUN-2016) Abnormal ECG When compared with ECG of 13-JUN-2016 07:28, QRS axis Shifted right Confirmed by Ortega Sr ([id number]) on 05/12/2021 2:11:23 PM Referred By: REFERRED SELF Confirmed By:Ortega Sr
[2021-05-12 16:17] LABS: BUN Creatinine Ratio 8.4 (10-20); Calcium 8.5 mg/dl (8.5-10.1); Creatinine Clr Calc Pharmacy 37.2 ml/min; Est GFR (African American) 45.7 ml/min; Est GFR (Non-African American) 39.4 ml/min; Potassium 4.2 mmol/L (3.5-5.1)
--- NOTE | 2021-05-12 19:16 | Communication Note ---
Date of Service: May 12, 2021 Serum creatinine this afternoon noted to be 1.43 AP ARF Hold lisinopril for now
[2021-05-12] MEDS ORDERED: ALBUMIN 25% 12.5 GM/50 ML VIAL IV ONE (19:30)
--- NOTE | 2021-05-12 20:06 | XRay Report ---
SINGLE VIEW CHEST CLINICAL HISTORY: Acute renal insufficiency. FINDINGS: An AP, portable, upright chest radiograph is compared to study dated 06/13/2016. A hiatal he rnia is noted. The cardiomediastinal silhouette is unremarkable noting atherosclerotic calcification of the thoracic aorta. Chronic interstitial thickening is similar to previous. No airspace consolidat ion or large pleural effusion is identified. No pneumothorax is seen. The skeletal structures are ost eopenic. The bony thorax is grossly intact. IMPRESSION: 1. No active disease in the chest. 2. Hiatal hernia. ACT 112: Negative or not required by law. Electronically signed by: Anton Denis M.D. 05/12/2021 8:05 PM
[2021-05-12 20:20] LABS: BUN Creatinine Ratio 13.5 (10-20); Calcium 8.6 mg/dl (8.5-10.1); Est GFR (African American) 60.7 ml/min; Est GFR (Non-African American) 52.4 ml/min; Potassium 4.5 mmol/L (3.5-5.1)
[2021-05-12] MEDS ORDERED: MELATONIN 3 MG TAB PO SCH (21:00)
[2021-05-12] MEDS ORDERED: MIRTAZAPINE TAB 15 MG TAB PO SCH (21:00)
[2021-05-12] MEDS ORDERED: ASPIRIN 81 MG ECTAB PO SCH (21:00)
[2021-05-12] MEDS ORDERED: ATORVASTATIN 40 MG TAB PO SCH (21:00)
[2021-05-13 06:27] LABS: Hematocrit (blood only) 30.9 % (37-47); Hemoglobin 9.6 g/dL (12.0-16.0); Mean Corpuscular Hemoglobin 21.4 pg (25-34); Mean Corpuscular Hgb Conc 31.1 g/dL (32-36); Mean Corpuscular Volume 68.8 fL (80-100); Mean Platelet Volume 9.2 fL (7.4-10.4); Platelet Count 289 K/uL (130-400); RDW Coefficient of Variation 17.5 % (11.5-14.5); RDW Standard Deviation 44.6 fL (36.4-46.3); Red Blood Count 4.49 M/uL (4.2-5.4); White Blood Count 4.17 K/uL (4.8-10.8)
[2021-05-13 07:03] LABS: Albumin Level 3.4 gm/dl (3.4-5.0); Calcium 8.9 mg/dl (8.5-10.1); Creatinine Clr Calc Pharmacy 62.5 ml/min; Est GFR (African American) 85.7 ml/min; Potassium 4.4 mmol/L (3.5-5.1)
[2021-05-13 07:06] LABS: Bilirubin,Total 0.2 mg/dl (0.2-1); Globulin 3.3 gm/dl (2.5-4.0); Total Protein 6.7 gm/dl (6.4-8.2)
[2021-05-13] MEDS: GABAPENTIN 800 MG TAB PO SCH (08:04)
[2021-05-13] MEDS: ENOXAPARIN INJ 30 MG/0.3 ML SYR SQ SCH (08:04)
[2021-05-13] MEDS: PRIMIDONE 50 MG TAB PO SCH (08:04)
[2021-05-13] MEDS: PANTOprazole 40 MG TAB PO SCH (08:05)
[2021-05-13] MEDS: INSULIN ASPART 100 UNITS/ML 3 ML PEN SC SCH (08:15)
[2021-05-13] MEDS: METOPROLOL SUCC 25MG EXT REL TAB PO SCH (10:01)
--- NOTE | 2021-05-13 10:27 | Nephrology Progress Note ---
Date of Service May 13, 2021 Assessment & Plan (1) Hyponatremia: acute on chronic hyponatremia, initially corrected too fast but now appropriate. unlikely to have role in syncope; may have role in ambulatory dysfunction/fall though. Polydipsia acutely and suspect chronically low solute diet driving hypotonic hyponatremia; presumptive structural lung disease in this long-term smoker may a lso have a role presenting sNa 123 on 05/11 at 1930, up to 133 May 12 AM at 0800; maintained in the 1 31-1 33 range since then with D5 water. TSH wnl. Reasonable from renal standpoint for hospital discharge (d/c summary updated) Basic metabolic panel to be ordered weekly until clinic follow-up <<my CKD clinic nurses will place these orders Okay to resume lisinopril at hospital discharge Discharge on fluid limit 60 ounces daily; may have up to 90 ounces if out in heat > Follow-up with me or my partner [facility] clinic in 6 to 8 weeks -avoid/minimize nsaids at d/c apart from 81 mg daily aspirin care coordinated w/ Dr Snow (2) Hypokalemia: Resolved (3) Syncope: w/u per primary service Admission and Anticipated Discharge Date Admission Date: May 11, 2021 Subjective no interval events ON; has no N, no sob, no edema, no ambulatory concerns, no new or worrisome voiding issues; creatinine did bump to 1.4 yesterday afternoon, improved to 0.9 this morning Review of Systems Review of Systems: All systems reviewed & are unremarkable except as noted in Subjective Physical Exam Constitutional: well developed and well nourished; no acute distress Eyes: EOM intact bilaterally ENMT: Ears: no external ear abnormality Nose: no external nose abnormality Mouth: + dry oral mucous membranes Neck: no nuchal rigidity Respiratory: normal respiratory effort Auscultation: lungs clear to auscultation bilaterally and + diminished lung sounds Cardiovascular: RRR, no murmur, no edema Gastrointestinal (Abdomen): Inspection/Auscultation: normal bowel sounds Percussion/Palpation: abdomen soft; abdomen nontender Musculoskeletal: Extremities: strength 5/5 throughout Skin: no rashes, warm and dry Neurologic: Speech / Cognition: normal cognition Motor/Sensory: normal movement Psychiatric: Orientation: alert and oriented x 3 Results & Data ([facility]) Vital Signs (Past 12 Hours) Vital Signs Temp Pulse Pulse Resp BP Pulse Ox 05/13/21 07:35 61 05/13/21 06:56 36.7 C 91 H 18 145/76 H 91 05/13/21 05:14 36.5 C 63 18 110/61 94 05/12/21 23:19 36.6 C 54 L 20 110/64 94 Laboratory Results 05/13/21 06:04 05/13/21 06:04 (1) Syncope Syncope type: unspecified Qualified Code(s): R55 - Syncope and collapse
--- NOTE | 2021-05-13 10:33 | Discharge Summary ---
Date of Service May 13, 2021 Admission HPI Per Admitting Provider History obtained from patient, family, and records. Medical history significant for hypertension, hyperlipidemia, DM2 diet- controlled, GERD, essential tremor, chronic hyponatremia, chronic anemia (baseline hemoglobin 9), ongoing tobacco abuse. Last confinement May 2016 for syncope and hyponatremia, possible SIADH. Patient noted to be hypotensive at the ER as per documentation. TTE, EEG unremarkable. Initial serum sodium was noted to be 124. Patient admits to drinking large volumes of free water and ice tea. Patient was with her daughters this afternoon when she had another witnessed syncopal event. Patient was out in the heat for about an hour prior to event as per documentation. Patient family not sure if patient lost pulse or breathing. No witnessed seizures. No incontinence. No abdominal pain, diarrhea, black/bloody stools, dysuria symptoms. Patient admits to drinking more than 48 ounces of water daily along with ice consumption. Patient woke up after 1 minute slightly confused. Patient denies chest pain, S OB. Patient brought to the ER by EMS. Medical History as above Surgical History : Hysteroscopy, ovarian cyst removal, tonsillectomy/adenoidec nova, strabismus surgery Family History : Heart disease, bipolar disorder, stroke Personal/Social history : Half pack daily, no EtOH intake, prior work as a [employer] Admission Exam Per Admitting Provider GENERAL: Comfortable, pleasant, no respiratory distress SKIN: Pallor, warm HEENT: Bespectacled, Pale palpebral conjunctivae, no ptosis, dry buccal mucosa NECK : Supple, no tenderness CHEST : CTA, no tenderness HEART : RRR, no obvious murmurs ABDOMEN: No distention, nontender EXTREMITIES : No LE swelling/tenderness, no other conspicuous deformities noted NEUROLOGIC : Coherent, no facial asymmetry, no other gross focality Principal Diagnosis Syncope: Acute on chronic hyponatremia hypertension hyperlipidemia DM2 essential tremor chronic anemia ongoing tobacco abuse Discharge Exam See below Discharge Data Allergies Allergy/AdvReac Type Severity Reaction Status Date / Time Iodinated Contrast Media Allergy Severe reddness, Verified 05/11/21 19:31 swelling Consultations 05/11/21 20:29 ED Decision to Admit Stat 05/12/21 01:12 Consult Nephrology Routine Current Diagnoses Hypo-osmolality and hyponatremia (05/11/21) Hypokalemia (05/11/21) Syncope and collapse (05/11/21) Allergies Iodinated Contrast Media Allergy (Severe, Verified 05/11/21 19:31) reddness, swelling Height/Weight/Isolation Height 5 ft 5 in Weight 58.9 kg Chemistry 05/11/21 05/12/21 05/12/21 19:24 01:29 08:10 Sodium 123 L 135 L D 133 L Potassium 3.5 4.1 D Chloride 88 L 100 Carbon Dioxide 27 27 Anion Gap 8.0 6.0 BUN 5 L 5 L Creatinine 0.70 0.79 Glucose 96 100 H 05/12/21 05/12/21 05/12/21 11:54 15:46 19:43 Sodium 132 L 131 L 130 L Potassium 4.3 4.2 4.5 Chloride 100 99 98 Carbon Dioxide 30 27 26 Anion Gap 2.0 L 6.0 6.0 BUN 5 L 12 D 15 Creatinine 0.77 1.43 H D 1.13 D Glucose 115 H 106 H 99 05/13/21 05/13/21 00:29 06:04 Sodium 132 L 131 L Potassium 4.4 Chloride 99 Carbon Dioxide 28 Anion Gap 4.0 BUN 12 Creatinine 0.85 Glucose 99 Urinalysis 05/11/21 19:50 Urine Color Yellow Urine Appearance Clear Urine pH 7.0 Ur Specific Maxwell 1.005 Urine Protein Negative Urine Glucose (UA) Negative Urine Ketones Negative Urine Blood Negative Urine Nitrite Negative Urine Bilirubin Negative Microbiology 05/11/21 19:50 Urine,Clean Catch Urine Culture - Pending Hospital Course (1) Syncope: Similar circumstances to 2016 confinement Rule out recurrent orthostasis, cardiac pathology Acute on chronic hyponatremia Possible SIADH concomitant psychogenic polydipsia SSRI intake contributory hypertension, elevated hyperlipidemia, on statin Rx DM2 diet-controlled, well-controlled as of recent hemoglobin A1c of 6.20 February 2021 essential tremor, stable on primidone chronic anemia, hemoglobin at baseline ongoing tobacco abuse Check orthostatic vitals, update TTE for recurrent syncope DC home today ISS BG goal 110-140 Nicotine patch as needed DVT prophylaxis. Lovenox subcu Full code ROS-No Headache, No Visual Changes, No Nausea, No Vomiting, No Fever, No Chills, No Neck Pain or Stiffness, No Chest Pain, No Palpitations, No SOB, No HERNANDEZ, No Cough, No Sputum, No Wheezing, No Abdominal Pain, No Diarrhea, No Hematemesis, No Hemoptysis, No Unexpected Weight Loss, No Flank pain, No Melena, No Hematochezia, No Frequency, No Urgency, No Burning, No Hematuria, No Rashes, No Diaphoresis. Appetite is Normal Physical Exam Gen-AAO x 3, NAD, Afebrile Head-NCAT, EOMI, PERRLA, Anicteric Sclera, No Posterior Pharyngeal Erythema Neck-Supple, No JVD, No Thyromegaly, No Masses, No LAD, No Bruits Lungs-Clear to Auscultation Bilaterally, No Rales, No Rhonchi, No Wheezing, No Crepitus Chest-No S4, +S1, +S2, No S3, No Murmurs, No Rubs, No Gallops, No Ectopy Abdomen-Soft, Bowel Sounds Present, Non Tender, Non Distended, No Hepatomegaly, No Splenomegaly, No Palpable Masses, No Rebound, No Rigidity, No Guarding Musculoskeletal-Full Range of Motion Bilaterally, No CVAT Extremities-No Cyanosis, No Clubbing, No Edema Nuero-Cranial Nerves II-XII grossly intact, Motor WNL, DTRs WNL, Strength WNL, Non Focal Psych-Normal Mood Total Time Total Time Spent Total Time Spent (In Minutes): 45 mins Total Time Includes: Examination of the Patient, Discharge Planning, Medication Reconciliation and Communication With Other Providers Discharge Plan Discharge Items Patient Disposition: Home - Self-Care Reason For Visit: HYPONATREMIA, RECURRENT SYNCOPE Discharge Diagnosis: Syncope: Acute on chronic hyponatremia hypertension hyperlipidemia DM2 essential tremor chronic anemia ongoing tobacco abuse Condition on Discharge: Good Activity: Resume your previous activity Lifting: Gradually increase as tolerated Bathing: No limitations Sexual Activity: When tolerated Exercise/Sports: Gradually increase as tolerated Driving/Machine Use: No limitations Weightbearing: Full weightbearing Non-emergency contact: Primary Care Provider and Flumer Call non-emergency contact if: you have any medication questions Follow-up/Referrals: Rachel Burgos MD, PhD [Physician] - (see first available provider in [facility] CKD clinic in 6-8 weeks) Ella Bhatt DO [Primary Care Provider] - Dietitian Info: May have up to 90 oz if out in heat; else 60 oz daily fluid limit Diet: Regular Fluids: 2000ml (8 cups) Addtl Attending Provider Instructions: None Addtl [employer] Provider Instructions: -check labs weekly at any [facility] clinic until seen in kidney clinic (kidney team to place these orders) -avoid NSAIDS/aspirin related medications other than daily baby aspirin Pending Studies at Discharge: No Stand-Alone Forms: [facility], Smoking Cessation Medications and DC Order Prescriptions: Continued aspirin 81 mg Tablet,Delayed Release (Dr/Ec) 81 mg PO PM Qty: 0 RF: 0 gabapentin 800 mg Tablet 800 mg PO TID Qty: 0 RF: 0 atorvastatin 40 mg Tablet 40 mg PO PM Qty: 0 RF: 0 primidone 50 mg Tablet 50 mg PO TID Qty: 0 RF: 0 pantoprazole 40 mg Tablet,Delayed Release (Dr/Ec) 40 mg PO QAM Qty: 0 RF: 0 melatonin 10 mg Tablet 10 mg PO HS Qty: 0 RF: 0 diphenhydramine HCl [Benadryl] 25 mg Capsule 25 mg PO HS PRN (Reason: Sleep) Qty: 0 RF: 0 mirtazapine 15 mg Tablet 15 mg PO HS Qty: 0 RF: 0 sertraline 100 mg tablet 50 mg PO HS RF: 0 lisinopril 10 mg tablet 10 mg PO QAM RF: 0 metoprolol succinate 25 mg tablet extended release 24 hr 25 mg PO QAM RF: 0 biotin 10,000 mcg Tablet,Disintegrating 10,000 mcg PO QAM RF: 0 Discharge Orders: Discharge Order (Routine); Ordered 05/13/21 Ordered By: Guille Snow Admission Data Admit Date/Time: 05/11/21 23:34 Attending Provider: Guille Snow Admit Provider: Bashir Snider Primary Care Provider: Ella Bhatt Other Providers: Bashir Snider ; Rachel Burgos ; Pankaj Gonzalez ; Nemo Gonzales ; Kamini Adhikari ; Mauri Torres ; Leighann Darnell
== END 2021-05-13 11:34 | disposition home or self-care (01) | DRG 644 ==
LOC: ED 18:30 → 2W 23:34

== ENCOUNTER 2023-01-05 21:54 | Inpatient (IN) ==
[2023-01-05] MEDS ORDERED: SODIUM CHLORIDE 0.9% 1000ML 1,000 ML IV SCH (22:45)
--- NOTE | 2023-01-05 23:00 | Emergency Department Note ---
History of Present Illness General Chief complaint: Syncope Stated complaint: Syncope Time Seen by Provider: 01/05/23 22:31 History of Present Illness This is a 62-year-old female presenting to the emergency department for evaluation of possible unresponsive episode. The patient was in her home sitting on the couch with her daughter. The patient was talking to the daughter when she had a moment where she laid her head off to the side and started drooling. The patient has had this happen at least 3 times previously in front of family, and they have not followed with a family doctor for this. The patient does not have a history of seizures. She did not reportedly have any postictal phase after the event. The patient has been evaluated in this department for this and will sometimes have electrolyte abnormalities. The patient is not complaining of head pain, neck pain, chest pain, chest tightness, shortness of breath, or palpitations before or after the event. She has no difficulty moving arms or legs. No recent travel history or recent URI symptoms. She rates her discomfort a 1/10. The episode occurred just prior to arrival and the patient arrives via ambulance. Home Medications Medication Instructions Recorded Confirmed Type aspirin 81 mg tablet,delayed 81 mg PO PM ##0 10/17/10 01/06/23 History release gabapentin 800 mg tablet 800 mg PO TID #0 tabs 08/05/12 01/06/23 History atorvastatin 40 mg tablet 40 mg PO PM ##0 07/27/15 01/06/23 History melatonin 10 mg tablet 20 mg PO HS ##0 07/27/15 01/06/23 History pantoprazole 40 mg tablet,delayed 40 mg PO QAM ##0 07/27/15 01/06/23 History release primidone 50 mg tablet 50 mg PO TID ##0 07/27/15 01/06/23 History diphenhydramine HCl 25 mg capsule 25 mg PO HS PRN Sleep #0 tabs 06/13/16 01/06/23 History (Benadryl) lisinopril 10 mg tablet 10 mg PO QAM 05/11/21 01/06/23 History metoprolol succinate 25 mg 25 mg PO QAM 05/11/21 01/06/23 History tablet,extended release 24 hr sertraline 100 mg tablet 50 mg PO HS 05/11/21 01/06/23 History lorazepam 0.5 mg tablet 0.5 mg PO BID PRN Anxiety 07/06/21 01/06/23 History mirtazapine 30 mg tablet 30 mg PO HS 07/06/21 01/06/23 History nitroglycerin 0.4 mg sublingual 0.4 mg sublingual UD PRN Chest Pain 07/06/21 01/06/23 History tablet Allergies Allergy/AdvReac Type Severity Reaction Status Date / Time Iodinated Contrast Media Allergy Severe reddness, Verified 01/06/23 00:42 swelling Past Med/Surg History Medical History Anemia Asthma Chronic hyponatremia Diabetes mellitus, type 2 diet controlled 04/2021 Essential tremor GERD (gastroesophageal reflux disease) Hyperlipidemia Hypertension Major depressive disorder Tobacco abuse Family History Father Hypertension Heart disease Social History Smoking Status: Current every day smoker Tobacco Type: Cigarettes Second Hand Exposure: No; Hx Alcohol Use: No Hx Substance Use: No Preferred Language: Kiswahili Communication Ability: Effective Mail Censor Required: No Beliefs That Will Affect Care: None Current Living Situation: Family Feels Safe at Home: Yes Assistive Devices: Glasses Review of Systems A total of 10 systems reviewed and were otherwise negative Physical Exam Vital Signs Vital Signs - 24 hr 01/05/23 21:57 01/05/23 22:04 01/05/23 22:49 Temperature 36.6 C Temperature Source Oral Pulse Rate - Lying Pulse Rate - Sitting Pulse Rate - Standing Pulse Rate 73 Pulse Rate [Apical] Respiratory Rate 18 Blood Pressure - Lying Blood Pressure - Sitting Blood Pressure- Standing Blood Pressure 151/84 H Blood Pressure [Right Arm] Blood Pressure Mean 106 Blood Pressure Mean [Right Arm] Pulse Oximetry 99 98 Oxygen Delivery Method Room Air Room Air Room Air Sepsis Recent Fever Within 48 Hours No Sepsis New/Unexplained Change in Mental Status N/A Sepsis Action Taken by Nursing No Action Required 01/05/23 23:57 01/06/23 01:00 01/06/23 00:35 Temperature Temperature Source Pulse Rate - Lying Pulse Rate - Sitting Pulse Rate - Standing Pulse Rate 76 Pulse Rate [Apical] 77 75 Respiratory Rate 18 16 Blood Pressure - Lying Blood Pressure - Sitting Blood Pressure- Standing Blood Pressure Blood Pressure [Right Arm] 156/78 H 135/81 Blood Pressure Mean Blood Pressure Mean [Right Arm] 104 99 Pulse Oximetry 97 94 Oxygen Delivery Method Room Air Room Air Sepsis Recent Fever Within 48 Hours Sepsis New/Unexplained Change in Mental Status Sepsis Action Taken by Nursing 01/06/23 02:10 01/06/23 03:00 01/06/23 04:36 Temperature Temperature Source Pulse Rate - Lying 72 Pulse Rate - Sitting 78 Pulse Rate - Standing 87 Pulse Rate 68 Pulse Rate [Apical] 70 Respiratory Rate 18 Blood Pressure - Lying 151/75 H Blood Pressure - Sitting 159/77 H Blood Pressure- Standing 142/80 H Blood Pressure Blood Pressure [Right Arm] 147/74 H Blood Pressure Mean Blood Pressure Mean [Right Arm] 98 Pulse Oximetry 94 Oxygen Delivery Method Room Air Sepsis Recent Fever Within 48 Hours Sepsis New/Unexplained Change in Mental Status Sepsis Action Taken by Nursing VITALS: Vitals are noted on the nurse's note and reviewed by myself. Vital signs stable. GENERAL: Well-developed, well-nourished, white female, who is in no acute distress and resting comfortably. Patient is cooperative with the examination. HEAD: Normocephalic atraumatic. MOUTH: Mucous membranes moist. Tonsils are not enlarged. Pharynx without erythema, blood, or exudate. Uvula midline. Airway patent. NECK: Supple without nuchal rigidity. No lymphadenopathy. No thyromegaly. Cervical spine is nontender. HEART: Regular rate and rhythm without murmurs gallops or rubs. LUNGS: Clear to auscultation bilaterally without wheezes, rales or rhonchi. No retractions or accessory muscle use. MUSCULOSKELETAL: No muscle atrophy, erythema, or edema noted. Full range of motion in all extremities. NEURO: Patient was alert and oriented to person place and time. CN II through XII grossly intact. GCS 15. Course Administered Medications Dextrose (D5w) 1,000 mls @ 60 mls/hr IV .[id number] ONE Stop: 01/06/23 20:05 Last Admin: 01/06/23 04:01 Dose: 60 mls/hr Documented By: STEFANO Nicotine (Nicotine 21 Mg/24 Hr Tdsy) 21 mg TD QAM MINDI Stop: 02/05/23 03:09 Last Admin: 01/06/23 04:05 Dose: 21 mg Documented By: STEFANO Discontinued Medications Sodium Chloride (Nss 1000ml) 1,000 mls @ 999 mls/hr IV .[id number] MINDI Stop: 01/05/23 23:45 Last Infusion: 01/06/23 00:22 Dose: 0 mls/hr Documented By: Admin: 01/05/23 22:59 Dose: 999 mls/hr Documented By: STEFANO Magnesium Sulfate/Dextrose (Magnesium Sulfate / D5w) 1 gm in 100 mls @ 50 mls/hr IV ONE ONE Stop: 01/06/23 02:21 Last Infusion: 01/06/23 02:41 Dose: 0 mls/hr Documented By: Admin: 01/06/23 00:52 Dose: 50 mls/hr Documented By: STEFANO Medical Decision Making Differential Diagnosis Differential diagnosis: Etiologies such as vasovagal event, infection, anemia, hypoglycemia, hypovolemia, electrolyte abnormalities, dysrhythmias, cardiac ischemia, cardiac tamponade, valvular heart disease, structural heart disease, seizure, vascular stenosis/dissection, pulmonary embolism, intracerebral event, toxicological process, neurologic event, as well as others were entertained. Laboratory Data 01/05/23 22:05 01/05/23 22:05 Lab Results 01/05/23 01/05/23 01/05/23 Range/Units 22:05 22:05 22:05 WBC 6.81 (4.8-10.8) K/ul RBC 4.49 (4.20-5.40) M/uL Hgb 9.4 L (12.0-16.0) g/dl Hct 30.5 L (37.0-47.0) % MCV 67.9 L (80.0-100.0) fL MCH 20.9 L (25.0-34.0) pg MCHC 30.8 L (32.0-36.0) g/dL RDW Std Deviation 44.9 (36.4-46.3) fL RDW Coeff of Lee 18.8 H (11.5-14.5) % Plt Count 346 (130-400) K/uL MPV 9.6 (9.4-12.4) fL Immature Gran % (Auto) 0.4 % Neut % (Auto) 62.8 % Lymph % (Auto) 28.2 % [place] % (Auto) 7.6 % Eos % (Auto) 0.6 % Baso % (Auto) 0.4 % Neut # (Auto) 4.27 (1.40-6.50) K/uL Lymph # (Auto) 1.92 (1.2-3.4) K/uL [place] # (Auto) 0.52 (0.11-0.59) K/uL Eos # (Auto) 0.04 (0-0.50) K/uL Baso # (Auto) 0.03 (0-0.2) K/uL Immature Gran # (Auto) 0.03 (0.01-0.20) K/uL Hypochromasia Present Microcytosis Present PT 11.6 (9.0-12.0) Seconds INR 1.1 (0.9-1.1) APTT 22.3 (21.0-31.0) Seconds PTT Ratio 0.8 Sodium 123 L (136-145) mmol/L Potassium 4.0 (3.5-5.1) mmol/L Chloride 90 L (98-107) mmol/L Carbon Dioxide 25 (21-32) mmol/L Anion Gap 8 (3-11) BUN 9 (6-23) mg/dl Creatinine 1.18 (0.6-1.2) mg/dl Est Cr Clr Drug Dosing 48.3 ml/min Est GFR ( Amer) 56.8 ml/min Est GFR (Non-Af Amer) 49.0 ml/min BUN/Creatinine Ratio 7.6 L (10-20) Glucose 122 H (70-99(Fasting)) mg/dl Osmolality (280-300) mOsm/kg Calcium 8.8 (8.5-10.1) mg/dl Magnesium 1.8 (1.7-2.4) mg/dl Total Bilirubin 0.3 (0.2-1.0) mg/dl AST 16 (13-39) U/L ALT 8 (7-52) U/L Alkaline Phosphatase 113 H (34-104) U/L Troponin I High Sens 6.8 (0-14) pg/ml Total Protein 7.1 (6.0-8.3) gm/dl Albumin 4.1 (3.4-5.0) gm/dl Globulin 3.0 (2.5-4.0) gm/dl Albumin/Globulin Ratio 1.4 (0.9-2) TSH (0.300-4.500) uIu/ml Urine Color Urine Appearance (Clear) Urine pH (4.5-7.5) Ur Specific [place] (1.000-1.030) Urine Protein (Negative) Urine Glucose (UA) (Negative) Urine Ketones (Negative) Urine Blood (Negative) Urine Nitrite (Negative) Urine Bilirubin (Negative) Urine Urobilinogen (Negative) Ur Leukocyte Esterase (Negative) Urine WBC (Auto) (0-5) /hpf Urine RBC (Auto) (0-4) /hpf U Hyaline Cast (Auto) (0-5) /lpf U Epithel Cells (Auto) (0-5) /lpf Urine Bacteria (Auto) (Negative) Urine Osmolality (500-800) mOsm/kg Ur Random Sodium mmol/L Lyme Disease IgG Ab (Negative) Lyme Disease IgM Ab (Negative) SARS-CoV-2, RNA, NAAT (NEGATIVE) 01/05/23 01/05/23 01/05/23 Range/Units 22:05 22:05 22:51 WBC (4.8-10.8) K/ul RBC (4.20-5.40) M/uL Hgb (12.0-16.0) g/dl Hct (37.0-47.0) % MCV (80.0-100.0) fL MCH (25.0-34.0) pg MCHC (32.0-36.0) g/dL RDW Std Deviation (36.4-46.3) fL RDW Coeff of Lee (11.5-14.5) % Plt Count (130-400) K/uL MPV (9.4-12.4) fL Immature Gran % (Auto) % Neut % (Auto) % Lymph % (Auto) % [place] % (Auto) % Eos % (Auto) % Baso % (Auto) % Neut # (Auto) (1.40-6.50) K/uL Lymph # (Auto) (1.2-3.4) K/uL [place] # (Auto) (0.11-0.59) K/uL Eos # (Auto) (0-0.50) K/uL Baso # (Auto) (0-0.2) K/uL Immature Gran # (Auto) (0.01-0.20) K/uL Hypochromasia Microcytosis PT (9.0-12.0) Seconds INR (0.9-1.1) APTT (21.0-31.0) Seconds PTT Ratio Sodium (136-145) mmol/L Potassium (3.5-5.1) mmol/L Chloride (98-107) mmol/L Carbon Dioxide (21-32) mmol/L Anion Gap (3-11) BUN (6-23) mg/dl Creatinine (0.6-1.2) mg/dl Est Cr Clr Drug Dosing ml/min Est GFR ( Amer) ml/min Est GFR (Non-Af Amer) ml/min BUN/Creatinine Ratio (10-20) Glucose (70-99(Fasting)) mg/dl Osmolality 263 L (280-300) mOsm/kg Calcium (8.5-10.1) mg/dl Magnesium (1.7-2.4) mg/dl Total Bilirubin (0.2-1.0) mg/dl AST (13-39) U/L ALT (7-52) U/L Alkaline Phosphatase (34-104) U/L Troponin I High Sens (0-14) pg/ml Total Protein (6.0-8.3) gm/dl Albumin (3.4-5.0) gm/dl Globulin (2.5-4.0) gm/dl Albumin/Globulin Ratio (0.9-2) TSH 3.191 (0.300-4.500) uIu/ml Urine Color Urine Appearance (Clear) Urine pH (4.5-7.5) Ur Specific [place] (1.000-1.030) Urine Protein (Negative) Urine Glucose (UA) (Negative) Urine Ketones (Negative) Urine Blood (Negative) Urine Nitrite (Negative) Urine Bilirubin (Negative) Urine Urobilinogen (Negative) Ur Leukocyte Esterase (Negative) Urine WBC (Auto) (0-5) /hpf Urine RBC (Auto) (0-4) /hpf U Hyaline Cast (Auto) (0-5) /lpf U Epithel Cells (Auto) (0-5) /lpf Urine Bacteria (Auto) (Negative) Urine Osmolality (500-800) mOsm/kg Ur Random Sodium mmol/L Lyme Disease IgG Ab Negative (Negative) Lyme Disease IgM Ab Negative (Negative) SARS-CoV-2, RNA, NAAT (NEGATIVE) 01/05/23 01/06/23 01/06/23 Range/Units 22:53 00:53 00:53 WBC (4.8-10.8) K/ul RBC (4.20-5.40) M/uL Hgb (12.0-16.0) g/dl Hct (37.0-47.0) % MCV (80.0-100.0) fL MCH (25.0-34.0) pg MCHC (32.0-36.0) g/dL RDW Std Deviation (36.4-46.3) fL RDW Coeff of Lee (11.5-14.5) % Plt Count (130-400) K/uL MPV (9.4-12.4) fL Immature Gran % (Auto) % Neut % (Auto) % Lymph % (Auto) % [place] % (Auto) % Eos % (Auto) % Baso % (Auto) % Neut # (Auto) (1.40-6.50) K/uL Lymph # (Auto) (1.2-3.4) K/uL [place] # (Auto) (0.11-0.59) K/uL Eos # (Auto) (0-0.50) K/uL Baso # (Auto) (0-0.2) K/uL Immature Gran # (Auto) (0.01-0.20) K/uL Hypochromasia Microcytosis PT (9.0-12.0) Seconds INR (0.9-1.1) APTT (21.0-31.0) Seconds PTT Ratio Sodium (136-145) mmol/L Potassium (3.5-5.1) mmol/L Chloride (98-107) mmol/L Carbon Dioxide (21-32) mmol/L Anion Gap (3-11) BUN (6-23) mg/dl Creatinine (0.6-1.2) mg/dl Est Cr Clr Drug Dosing ml/min Est GFR ( Amer) ml/min Est GFR (Non-Af Amer) ml/min BUN/Creatinine Ratio (10-20) Glucose (70-99(Fasting)) mg/dl Osmolality (280-300) mOsm/kg Calcium (8.5-10.1) mg/dl Magnesium (1.7-2.4) mg/dl Total Bilirubin (0.2-1.0) mg/dl AST (13-39) U/L ALT (7-52) U/L Alkaline Phosphatase (34-104) U/L Troponin I High Sens (0-14) pg/ml Total Protein (6.0-8.3) gm/dl Albumin (3.4-5.0) gm/dl Globulin (2.5-4.0) gm/dl Albumin/Globulin Ratio (0.9-2) TSH (0.300-4.500) uIu/ml Urine Color Yellow Urine Appearance Clear (Clear) Urine pH 6.0 (4.5-7.5) Ur Specific [place] 1.004 (1.000-1.030) Urine Protein Negative (Negative) Urine Glucose (UA) Negative (Negative) Urine Ketones Negative (Negative) Urine Blood Negative (Negative) Urine Nitrite Negative (Negative) Urine Bilirubin Negative (Negative) Urine Urobilinogen Negative (Negative) Ur Leukocyte Esterase 2+ H (Negative) Urine WBC (Auto) 5-10 H (0-5) /hpf Urine RBC (Auto) 0-4 (0-4) /hpf U Hyaline Cast (Auto) 1-5 (0-5) /lpf U Epithel Cells (Auto) >30 H (0-5) /lpf Urine Bacteria (Auto) 1+ H (Negative) Urine Osmolality 89 L (500-800) mOsm/kg Ur Random Sodium mmol/L Lyme Disease IgG Ab (Negative) Lyme Disease IgM Ab (Negative) SARS-CoV-2, RNA, NAAT NEGATIVE (NEGATIVE) 01/06/23 01/06/23 Range/Units 00:53 02:39 WBC (4.8-10.8) K/ul RBC (4.20-5.40) M/uL Hgb (12.0-16.0) g/dl Hct (37.0-47.0) % MCV (80.0-100.0) fL MCH (25.0-34.0) pg MCHC (32.0-36.0) g/dL RDW Std Deviation (36.4-46.3) fL RDW Coeff of Lee (11.5-14.5) % Plt Count (130-400) K/uL MPV (9.4-12.4) fL Immature Gran % (Auto) % Neut % (Auto) % Lymph % (Auto) % [place] % (Auto) % Eos % (Auto) % Baso % (Auto) % Neut # (Auto) (1.40-6.50) K/uL Lymph # (Auto) (1.2-3.4) K/uL [place] # (Auto) (0.11-0.59) K/uL Eos # (Auto) (0-0.50) K/uL Baso # (Auto) (0-0.2) K/uL Immature Gran # (Auto) (0.01-0.20) K/uL Hypochromasia Microcytosis PT (9.0-12.0) Seconds INR (0.9-1.1) APTT (21.0-31.0) Seconds PTT Ratio Sodium 131 L (136-145) mmol/L Potassium (3.5-5.1) mmol/L Chloride (98-107) mmol/L Carbon Dioxide (21-32) mmol/L Anion Gap (3-11) BUN (6-23) mg/dl Creatinine (0.6-1.2) mg/dl Est Cr Clr Drug Dosing ml/min Est GFR ( Amer) ml/min Est GFR (Non-Af Amer) ml/min BUN/Creatinine Ratio (10-20) Glucose (70-99(Fasting)) mg/dl Osmolality (280-300) mOsm/kg Calcium (8.5-10.1) mg/dl Magnesium (1.7-2.4) mg/dl Total Bilirubin (0.2-1.0) mg/dl AST (13-39) U/L ALT (7-52) U/L Alkaline Phosphatase (34-104) U/L Troponin I High Sens (0-14) pg/ml Total Protein (6.0-8.3) gm/dl Albumin (3.4-5.0) gm/dl Globulin (2.5-4.0) gm/dl Albumin/Globulin Ratio (0.9-2) TSH (0.300-4.500) uIu/ml Urine Color Urine Appearance (Clear) Urine pH (4.5-7.5) Ur Specific [place] (1.000-1.030) Urine Protein (Negative) Urine Glucose (UA) (Negative) Urine Ketones (Negative) Urine Blood (Negative) Urine Nitrite (Negative) Urine Bilirubin (Negative) Urine Urobilinogen (Negative) Ur Leukocyte Esterase (Negative) Urine WBC (Auto) (0-5) /hpf Urine RBC (Auto) (0-4) /hpf U Hyaline Cast (Auto) (0-5) /lpf U Epithel Cells (Auto) (0-5) /lpf Urine Bacteria (Auto) (Negative) Urine Osmolality (500-800) mOsm/kg Ur Random Sodium 17 mmol/L Lyme Disease IgG Ab (Negative) Lyme Disease IgM Ab (Negative) SARS-CoV-2, RNA, NAAT (NEGATIVE) Imaging Data Radiologist's Impression: Preliminary Findings Only See Final Report For Complete Findings CT HEAD: Impression: No intracranial hemorrhage. Global parenchymal volume loss with chronic microvascular ischemic changes as well as chronic appearing lacunar infarctions of the left thalamus and the right caudate nucleus. Consider evaluation with MRI as clinically warranted. No mass lesion, mass effect, or ventriculomegaly. Radiologist:Chase Duque MD ECG Data Attestation: I personally reviewed and interpreted this ECG as follows: Indication: + altered mental status Additional Comments: Normal sinus rhythm @[address] elevation Septal infarct , age undetermined When compared with ECG of 06-JUL-2021 17:06, Septal infarct is now Present N onspecific T wave abnormality now evident in Anterior leads MDM Narrative Physical exam and history were performed. Nursing notes, EMR, and Medication List were personally reviewed. No social concerns were identified as barriers to patients care. Patient appears to have had a period of unresponsiveness. She has had symptoms like this in the past and clinically this does not sound distinctly like a true syncope or seizure. On arrival to the ER she is nontoxic and able to answer questions appropriately. IV access was established and labs were obtained. She was hydrated with normal saline. An order was placed for continuous cardiac monitoring. The monitor shows a rate of 68 with normal sinus rhythm. Patient's blood work is as above and was reviewed. She does not have a significantly elevated white blood cell count. She is mildly anemic, which does appear chronic INR is 1.1. Lipase and transaminases are not diagnostic. Glucose is 122. Troponin is negative x1. Patient's sodium is quite low at 123. CT scan of the head was performed and reviewed by myself and radiology showing no acute process. Case was discussed with my attending physician, Dr. Robles. Overall we do not feel the patient is well for discharge home. The patient seems to have had a unresponsive episode and is hyponatremic. She does smoke regularly, and this could affect her sodium. The patient case was discussed with the [facility] who did agree to evaluate the patient here in the ER. Please see their dictation for further patient course, plan, disposition. The chart was completed utilizing [employer] Speech Voice Recognition Software. Grammatical errors, random word insertions, pronoun errors, and incomplete sentences are an occasional consequence of this system due to software limitations, ambient noise, and hardware issues. Any formal questions or concerns about the content, text, or information contained within the body of t his dictation should be directly addressed to the provider for clarification. . Impression & Plan Unresponsive episode, Hyponatremia Discharge Plan Visit Data Chief Complaint: Syncope Stated Complaint: Syncope ED Provider: Edvin Robles ED Midlevel Provider: Jose Dixon Discharge Problem: Unresponsive episode, Hyponatremia Forms Stand Alone Forms: My [facility] Prescriptions Prescriptions: No Action aspirin 81 mg Tablet,Delayed Release (Dr/Ec) 81 mg PO PM Qty: 0 gabapentin 800 mg Tablet 800 mg PO TID Qty: 0 atorvastatin 40 mg Tablet 40 mg PO PM Qty: 0 primidone 50 mg Tablet 50 mg PO TID Qty: 0 pantoprazole 40 mg Tablet,Delayed Release (Dr/Ec) 40 mg PO QAM Qty: 0 melatonin 10 mg Tablet 20 mg PO HS Qty: 0 diphenhydramine HCl [Benadryl] 25 mg Capsule 25 mg PO HS PRN (Reason: Sleep) Qty: 0 nitroglycerin 0.4 mg tablet, sublingual 0.4 mg sublingual UD PRN (Reason: Chest Pain) lorazepam 0.5 mg tablet 0.5 mg PO BID PRN (Reason: Anxiety) mirtazapine 30 mg tablet 30 mg PO HS sertraline 100 mg tablet 50 mg PO HS lisinopril 10 mg tablet 10 mg PO QAM metoprolol succinate 25 mg tablet extended release 24 hr 25 mg PO QAM Referrals Referrals: Ella Bhatt DO [Outside Practitioners] -
[2023-01-05 23:06] LABS: Basophils # (auto) 0.03 K/uL (0-0.2); Basophils % (auto) 0.4 %; Eosinophils # (auto) 0.04 K/uL (0-0.50); Eosinophils % (auto) 0.6 %; Hematocrit (blood only) 30.5 % (37.0-47.0); Hemoglobin 9.4 g/dl (12.0-16.0); Immature Granulocytes # (auto) 0.03 K/uL (0.01-0.20); Immature Granulocytes % (auto) 0.4 %; Lymphocytes # (auto) 1.92 K/uL (1.2-3.4); Lymphocytes % (auto) 28.2 %; Mean Corpuscular Hemoglobin 20.9 pg (25.0-34.0); Mean Corpuscular Hgb Conc 30.8 g/dL (32.0-36.0); Mean Corpuscular Volume 67.9 fL (80.0-100.0); Monocytes # (auto) 0.52 K/uL (0.11-0.59); Monocytes % (auto) 7.6 %; Neutrophils # (auto) 4.27 K/uL (1.40-6.50); Neutrophils % (auto) 62.8 %; RDW Coefficient of Variation 18.8 % (11.5-14.5); RDW Standard Deviation 44.9 fL (36.4-46.3); Red Blood Count 4.49 M/uL (4.20-5.40); White Blood Count 6.81 K/ul (4.8-10.8)
[2023-01-05 23:14] LABS: Albumin Globulin Ratio 1.4 (0.9-2); Albumin Level 4.1 gm/dl (3.4-5.0); BUN Creatinine Ratio 7.6 (10-20); Bilirubin,Total 0.3 mg/dl (0.2-1.0); Calcium 8.8 mg/dl (8.5-10.1); Creatinine Clr Calc Pharmacy 48.3 ml/min; Est GFR (African American) 56.8 ml/min; Magnesium 1.8 mg/dl (1.7-2.4); Total Protein 7.1 gm/dl (6.0-8.3)
[2023-01-05 23:19] LABS: Troponin I High Sensitivity 6.8 pg/ml (0-14)
[2023-01-05 23:29] LABS: Hypochromasia Present; Mean Platelet Volume 9.6 fL (9.4-12.4); Microcytosis Present; Platelet Count 346 K/uL (130-400)
[2023-01-05 23:33] LABS: Lyme Ab IgG w/WB Rflx Negative (Negative); Lyme Ab IgM w/WB Rflx Negative (Negative)
[2023-01-05 23:44] LABS: INR 1.1 (0.9-1.1); Partial Thromboplastin Ratio 0.8; Partial Thromboplastin Time 22.3 Seconds (21.0-31.0); Prothrombin Time 11.6 Seconds (9.0-12.0)
[2023-01-06] MEDS ORDERED: MAGNESIUM SULFATE / D5W 1 GM/100 ML BAG IV ONE (00:22)
[2023-01-06 01:24] LABS: Appearance Urine Clear (Clear); Bacteria Urine Automated 1+ (Negative); Bilirubin Urine Negative (Negative); Blood Urine Negative (Negative); Color Urine Yellow; Epithelial Cell Urine Auto >30 /lpf (0-5); Glucose Urine UA Negative (Negative); Ketones Urine Negative (Negative); Leukocyte Esterase Urine 2+ (Negative); Nitrite Urine Negative (Negative); Protein Urine Negative (Negative); RBC Urine Automated 0-4 /hpf (0-4); Specific Gravity Urine 1.004 (1.000-1.030); Urobilinogen Urine Negative (Negative)
--- NOTE | 2023-01-06 02:51 | History & Physical Report ---
Date of Service January 06, 2023 Assessment & Plan (1) Unresponsive episode: Plan: Multifactorial : Multiple neuropsychotropic medications Acute on chronic hyponatremia, SIADH, hx psychogenic polydipsia, patient claims to be compliant with 32 ounce daily fluid restriction hypertension, slightly elevated hyperlipidemia, on statin Rx DM2 diet-controlled, well-controlled as of recent hemoglobin A1c of 27 November 2021 essential tremor, stable on primidone chronic anemia, hemoglobin at baseline ongoing tobacco abuse Medical telemetry Recheck sodium after fluid bolus given at the ER fluid restriction Hyponatremia work-up Nephrology consult Re: Acute on chronic hyponatremia ISS BG goal 1 10-1 40, update hemoglobin A1c Nicotine patch DVT prophylaxis. Lovenox subcu Full code Patient daughter requesting updates from providers. Mr. Shade Varghese, contact #[phone]. Text document was generated using [employer] voice recognition software. It may contain grammatical or spelling errors. Kindly contact undersigned for clarification of any documentation item in question. History of Present Illness Chief Complaint: Decreased responsiveness as per family Primary Care Provider: Jacque Doe PA-C History obtained from patient and records. Medical history significant for hypertension, hyperlipidemia, DM2 diet- controlled, GERD, essential tremor, chronic hyponatremia, chronic anemia (baseline hemoglobin 9), ongoing tobacco abuse. 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 60 ounce daily fluid restriction recommended by Nephrology on discharge. Patient took all her night pills last night and was subsequently noted to have decreased responsiveness by family. No witnessed seizures, tongue biting, incontinence. Patient denies headache, chest pain, SOB. Last seen by [facility] Nephrology outpatient July 2021. Patient claims to be compliant with 32 ounce daily fluid restriction. Medical Historyas above Surgical History : Hysteroscopy, ovarian cyst removal, tonsillectomy/adenoidectomy, strabismus surgery Family History : Heart disease, bipolar disorder, stroke Personal/Social history : Half pack daily, no EtOH intake, prior work as a cook Allergies Allergy/AdvReac Type Severity Reaction Status Date / Time Iodinated Contrast Media Allergy Severe reddness, Verified 01/06/23 00:42 swelling Home Medications Medication Instructions Recorded Confirmed Type aspirin 81 mg tablet,delayed 81 mg PO PM ##0 10/17/10 01/06/23 History release gabapentin 800 mg tablet 800 mg PO TID #0 tabs 08/05/12 01/06/23 History atorvastatin 40 mg tablet 40 mg PO PM ##0 07/27/15 01/06/23 History melatonin 10 mg tablet 20 mg PO HS ##0 07/27/15 01/06/23 History pantoprazole 40 mg tablet,delayed 40 mg PO QAM ##0 07/27/15 01/06/23 History release primidone 50 mg tablet 50 mg PO TID ##0 07/27/15 01/06/23 History diphenhydramine HCl 25 mg capsule 25 mg PO HS PRN Sleep #0 tabs 06/13/01/06/23 History (Benadryl) lisinopril 10 mg tablet 10 mg PO QAM 05/11/21 01/06/23 History metoprolol succinate 25 mg 25 mg PO QAM 05/11/21 01/06/23 History tablet,extended release 24 hr sertraline 100 mg tablet 50 mg PO HS 05/11/21 01/06/23 History lorazepam 0.5 mg tablet 0.5 mg PO BID PRN Anxiety 07/06/21 01/06/23 History mirtazapine 30 mg tablet 30 mg PO HS 07/06/21 01/06/23 History nitroglycerin 0.4 mg sublingual 0.4 mg sublingual UD PRN Chest Pain 07/06/21 01/06/23 History tablet Past Med/Surg History Medical History (Updated 01/06/23 @ 10:27 by Rachel Burgos MD, PhD) Anemia Asthma Chronic hyponatremia CKD (chronic kidney disease) stage 3, GFR 30-59 ml/min CKD 3A based on OP labs [id number] Diabetes mellitus, type 2 diet controlled 04/2021 Essential tremor GERD (gastroesophageal reflux disease) Hyperlipidemia Hypertension Major depressive disorder Tobacco abuse Family History Father Hypertension Heart disease Social History Smoking Status: Current every day smoker Tobacco Type: Cigarettes Cigarettes Per Day: 1 PPD; Second Hand Exposure: No; Tobacco Cessation Education Requested by Patient: No Hx Alcohol Use: No Hx Substance Use: No Preferred Language: Citizen Of [place] Communication Ability: Effective Mds Nurse Required: No Beliefs That Will Affect Care: None Current Living Situation: Alone Other Information That Helps Us Care for You: No Feels Safe at Home: Yes Safety Concerns: Feels Safe At This Time Assistive Devices: Denture - Upper, Denture - Lower and Glasses Review of Systems Review of Systems: As per HPI, all other systems reviewed and negative Physical Exam Physical Exam: GENERAL: Comfortable, pleasant, no respiratory distress SKIN: Pallor, warm HEENT: Bespectacled, pale palpebral conjunctivae, no ptosis, dry buccal mucosa NECK : Supple, no tenderness CHEST : CTA, no tenderness HEART : RRR, no obvious murmurs ABDOMEN: No distention, nontender EXTREMITIES : No LE swelling/tenderness, no other conspicuous deformities noted NEUROLOGIC : Coherent, no facial asymmetry, no other gross focality Results & Data Results & Data ([facility]) Vital Signs (Past 12 Hours) Vital Signs Temp Pulse Pulse Resp BP BP Pulse Ox 01/06/23 00:35 76 01/06/23 01:00 75 16 135/81 94 01/05/23 23:57 77 18 156/78 H 97 01/05/23 22:49 98 01/05/23 22:04 01/05/23 21:57 36.6 C 73 18 151/84 H 99 O2 Del Method 01/06/23 00:35 01/06/23 01:00 Room Air 01/05/23 23:57 Room Air 01/05/23 22:49 Room Air 01/05/23 22:04 Room Air 01/05/23 21:57 Room Air Laboratory Results Laboratory Results WBC 6.81 K/ul (4.8-10.8) 01/05/23 22:05 RBC 4.49 M/uL (4.20-5.40) 01/05/23 22:05 Hgb 9.4 g/dl (12.0-16.0) L 01/05/23 22:05 Hct 30.5 % (37.0-47.0) L 01/05/23 22:05 MCV 67.9 fL (80.0-100.0) L 01/05/23 22:05 MCH 20.9 pg (25.0-34.0) L 01/05/23 22:05 MCHC 30.8 g/dL (32.0-36.0) L 01/05/23 22:05 RDW Std Deviation 44.9 fL (36.4-46.3) 01/05/23 22:05 RDW Coeff of Lee 18.8 % (11.5-14.5) H 01/05/23 22:05 Plt Count 346 K/uL (130-400) 01/05/23 22:05 MPV 9.6 fL (9.4-12.4) 01/05/23 22:05 Immature Gran % (Auto) 0.4 % 01/05/23 22:05 Neut % (Auto) 62.8 % 01/05/23 22:05 Lymph % (Auto) 28.2 % 01/05/23 22:05 [place] % (Auto) 7.6 % 01/05/23 22:05 Eos % (Auto) 0.6 % 01/05/23 22:05 Baso % (Auto) 0.4 % 01/05/23 22:05 Neut # (Auto) 4.27 K/uL (1.40-6.50) 01/05/23 22:05 Lymph # (Auto) 1.92 K/uL (1.2-3.4) 01/05/23 22:05 [place] # (Auto) 0.52 K/uL (0.11-0.59) 01/05/23 22:05 Eos # (Auto) 0.04 K/uL (0-0.50) 01/05/23 22:05 Baso # (Auto) 0.03 K/uL (0-0.2) 01/05/23 22:05 Immature Gran # (Auto) 0.03 K/uL (0.01-0.20) 01/05/23 22:05 Hypochromasia Present 01/05/23 22:05 Microcytosis Present 01/05/23 22:05 PT 11.6 Seconds (9.0-12.0) 01/05/23 22:05 INR 1.1 (0.9-1.1) 01/05/23 22:05 APTT 22.3 Seconds (21.0-31.0) 01/05/23 22:05 PTT Ratio 0.8 01/05/23 22:05 Sodium 123 mmol/L (136-145) L 01/05/23 22:05 Potassium 4.0 mmol/L (3.5-5.1) 01/05/23 22:05 Chloride 90 mmol/L (98-107) L 01/05/23 22:05 Carbon Dioxide 25 mmol/L (21-32) 01/05/23 22:05 Anion Gap 8 (3-11) 01/05/23 22:05 BUN 9 mg/dl (6-23) 01/05/23 22:05 Creatinine 1.18 mg/dl (0.6-1.2) 01/05/23 22:05 Est Cr Clr Drug Dosing 48.3 ml/min 01/05/23 22:05 Est GFR ( Amer) 56.8 ml/min 01/05/23 22:05 Est GFR (Non-Af Amer) 49.0 ml/min 01/05/23 22:05 BUN/Creatinine Ratio 7.6 (10-20) L 01/05/23 22:05 Glucose 122 mg/dl (70-99(Fasting)) H 01/05/23 22:05 Osmolality 263 mOsm/kg (280-300) L 01/05/23 22:51 Calcium 8.8 mg/dl (8.5-10.1) 01/05/23 22:05 Magnesium 1.8 mg/dl (1.7-2.4) 01/05/23 22:05 Total Bilirubin 0.3 mg/dl (0.2-1.0) 01/05/23 22:05 AST 16 U/L (13-39) 01/05/23 22:05 ALT 8 U/L (7-52) 01/05/23 22:05 Alkaline Phosphatase 113 U/L (34-104) H 01/05/23 22:05 Troponin I High Sens 6.8 pg/ml (0-14) 01/05/23 22:05 Total Protein 7.1 gm/dl (6.0-8.3) 01/05/23 22:05 Albumin 4.1 gm/dl (3.4-5.0) 01/05/23 22:05 Globulin 3.0 gm/dl (2.5-4.0) 01/05/23 22:05 Albumin/Globulin Ratio 1.4 (0.9-2) 01/05/23 22:05 TSH 3.191 uIu/ml (0.300-4.500) 01/05/23 22:05 Urine Color Yellow 01/06/23 00:53 Urine Appearance Clear (Clear) 01/06/23 00:53 Urine pH 6.0 (4.5-7.5) 01/06/23 00:53 Ur Specific Men[place] 1.004 (1.000-1.030) 01/06/23 00:53 Urine Protein Negative (Negative) 01/06/23 00:53 Urine Glucose (UA) Negative (Negative) 01/06/23 00:53 Urine Ketones Negative (Negative) 01/06/23 00:53 Urine Blood Negative (Negative) 01/06/23 00:53 Urine Nitrite Negative (Negative) 01/06/23 00:53 Urine Bilirubin Negative (Negative) 01/06/23 00:53 Urine Urobilinogen Negative (Negative) 01/06/23 00:53 Ur Leukocyte Esterase 2+ (Negative) H 01/06/23 00:53 Urine WBC (Auto) 5-10 /hpf (0-5) H 01/06/23 00:53 Urine RBC (Auto) 0-4 /hpf (0-4) 01/06/23 00:53 U Hyaline Cast (Auto) 1-5 /lpf (0-5) 01/06/23 00:53 U Epithel Cells (Auto) >30 /lpf (0-5) H 01/06/23 00:53 Urine Bacteria (Auto) 1+ (Negative) H 01/06/23 00:53 Urine Osmolality 89 mOsm/kg (500-800) L 01/06/23 00:53 Ur Random Sodium 17 mmol/L 01/06/23 00:53 Lyme Disease IgG Ab Negative (Negative) 01/05/23 22:05 Lyme Disease IgM Ab Negative (Negative) 01/05/23 22:05 SARS-CoV-2, RNA, NAAT NEGATIVE (NEGATIVE) 01/05/23 22:[address] head initial read: No intracranial hemorrhage. Global parenchymal volume loss with chronic microvascular ischemic changes as well as chronic appearing lacunar infarctions of the left thalamus and the right caudate nucleus. Consider evaluation with MRI as clinically warranted. No mass lesion, mass effect, or ventriculomegaly. Chest x-ray as per my interpretation no congestion EKG as per my interpretation : Rate 75, NSR, normal axis, septal infarct, T wave abnormality septal leads
[2023-01-06] MEDS ORDERED: DEXTROSE 5% 1,000 ML IV ONE (03:26)
[2023-01-06] MEDS: NICOTINE 21 MG/24 HR TDSY TD SCH (04:05)
[2023-01-06] MEDS ORDERED: PROMETHAZINE HCL 12.5 MG in SODIUM CHLORIDE 0.9% 50 ML IV PRN (06:00)
[2023-01-06] MEDS ORDERED: LORazepam 0.5 MG TAB PO PRN (06:00)
[2023-01-06] MEDS ORDERED: ACETAMINOPHEN 325 MG TAB PO PRN (06:00)
--- NOTE | 2023-01-06 06:57 | CT Scan Report ---
CT SCAN OF THE BRAIN WITHOUT IV CONTRAST CLINICAL HISTORY: Dizziness. Headache. Episode of unresponsiveness COMPARISON STUDY: CT of the brain dated 06/13/2016. TECHNIQUE: Unenhanced axial CT scan of the brain is performed from the vertex to the skull base. A do se lowering technique was utilized adhering to the principles of ALARA. CT DOSE: 537.48 mGy.cm FINDINGS: Brain parenchyma: There is age-related involutional change noting moderate subcortical and periventri cular microangiopathic disease. There is no hemorrhage, mass effect, or evidence of acute territorial ischemia by CT criteria. Pace-white matter differentiation is preserved. No extra-axial fluid collec tion is seen. Chronic lacunar infarcts are noted in the right caudate head and the left thalamus. Ventricles, sulci, cisterns: Prominent secondary to involutional change. Intracranial vasculature: There is atherosclerotic calcification of the cavernous carotid arteries. Calvarium: Unremarkable. Sinuses and mastoids: The visualized paranasal sinuses are clear. The mastoid air cells are well pneu matized. Orbits: The bony orbits are grossly intact. IMPRESSION: There is no hemorrhage, mass effect, or evidence of acute territorial ischemia by CT nataliia bertrand. ACT 112: Negative or not required by law. Electronically signed by: Anton Denis M.D. 01/06/2023 6:56 AM
--- NOTE | 2023-01-06 06:57 | XRay Report ---
XR chest 1V portable HISTORY: 62 years-old Female hyponatremia COMPARISON: 05/12/2022 TECHNIQUE: AP view of the chest FINDINGS: Hiatal hernia. Cardiomediastinal and hilar silhouettes are within normal limits. Atherosclerosis of t he aorta. No pneumothorax, pleural effusion, airspace consolidation or overt pulmonary edema. Bones o f the chest appear grossly intact. IMPRESSION: No acute process. ACT 112: Negative or not required by law. The above report was generated using voice recognition software. It may contain grammatical, syntax o r spelling errors. Electronically signed by: Homer Herman M.D. 01/06/2023 6:56 AM
[2023-01-06] MEDS ORDERED: GLUCOSE 40% GEL 15 GM TUBE PO PRN (07:42)
[2023-01-06] MEDS ORDERED: GLUCOSE 10 TAB/TUBE PO PRN (07:42)
[2023-01-06] MEDS ORDERED: DEXTROSE 50% 50 ML SYRINGE IV PRN (07:42)
[2023-01-06] MEDS ORDERED: GLUCAGON FOR INJ 1 MG VIAL SQ PRN (07:42)
[2023-01-06] MEDS ORDERED: CARBOHYDRATES FOR HYPOGLYCEMIA PO PRN (07:42)
--- NOTE | 2023-01-06 07:51 | Communication Note ---
Date of Service: January 06, 2023 Notified by RN of 25 beat run of VT on the monitor. Patient without chest pain or SOB. Fluttery feeling as per patient as per RN during episode. Prior episodes at home but not last night as per patient. AP Transient VT with symptoms Facilitate morning beta-maynor TTE, Cardiology consult
[2023-01-06] MEDS: PRIMIDONE 50 MG TAB PO SCH ×3 (08:02→20:17)
[2023-01-06] MEDS: GABAPENTIN 800 MG TAB PO SCH ×3 (08:03→20:18)
[2023-01-06] MEDS: PANTOprazole 40 MG TAB PO SCH (08:03)
[2023-01-06] MEDS: METOPROLOL SUCC 25MG EXT REL TAB PO SCH (08:03)
[2023-01-06 08:21] LABS: Basophils # (auto) 0.02 K/uL (0-0.2); Basophils % (auto) 0.4 %; Eosinophils # (auto) 0.06 K/uL (0-0.50); Eosinophils % (auto) 1.3 %; Hematocrit (blood only) 28.8 % (37.0-47.0); Immature Granulocytes # (auto) 0.02 K/uL (0.01-0.20); Immature Granulocytes % (auto) 0.4 %; Lymphocytes # (auto) 1.32 K/uL (1.2-3.4); Lymphocytes % (auto) 28.3 %; Mean Corpuscular Hgb Conc 31.3 g/dL (32.0-36.0); Mean Corpuscular Volume 67.3 fL (80.0-100.0); Monocytes # (auto) 0.42 K/uL (0.11-0.59); Neutrophils # (auto) 2.82 K/uL (1.40-6.50); Neutrophils % (auto) 60.6 %; RDW Coefficient of Variation 18.6 % (11.5-14.5); RDW Standard Deviation 44.1 fL (36.4-46.3); Red Blood Count 4.28 M/uL (4.20-5.40); White Blood Count 4.66 K/ul (4.8-10.8)
[2023-01-06 08:26] LABS: Mean Platelet Volume 9.5 fL (9.4-12.4); Platelet Count 343 K/uL (130-400)
[2023-01-06] MEDS: INSULIN ASPART PER UNIT SC SCH ×4 (08:26→20:42)
[2023-01-06 08:46] LABS: BUN Creatinine Ratio 6.9 (10-20); Calcium 8.7 mg/dl (8.5-10.1); Creatinine Clr Calc Pharmacy 56.2 ml/min; Est GFR (African American) 68.6 ml/min; Est GFR (Non-African American) 59.2 ml/min; Potassium 3.7 mmol/L (3.5-5.1)
[2023-01-06 08:53] LABS: Hypochromasia Present; Microcytosis Present; Polychromasia 1+
[2023-01-06] MEDS ORDERED: METOPROLOL SUCC 25MG EXT REL TAB PO SCH (09:00)
[2023-01-06] MEDS ORDERED: lisinopril 10 MG TAB PO SCH (09:00)
[2023-01-06] MEDS ORDERED: POTASSIUM CHLORIDE CRTAB 20 MEQ TABCR PO STA (09:37)
--- NOTE | 2023-01-06 09:46 | Nephrology Consultation ---
Date of Consultation January 06, 2023 Assessment & Plan (1) Hyponatremia: Worsening of chronic hyponatremia with baseline sodium in the high 120s consistently from June 2021 through November 2021. We are unfortunately unable to establish acuity of this change in sodium. Based on her admission studies, the patient clearly presented with worsened hyponatremia from polydipsia. She then corrected too quickly from 1 23->1 33 in a matter of about 8 hours. Target sodium for this evening 10 PM is 129 To meet this target, have increased D5W rate to 150 mL hourly Repeat basic metabolic panel ordered for 2 PM > based on this 150 ml/hr D5W is appropriate Maintain eukalemia; note that cardiology has supplemented potassium already today -For now continue fluid restriction 1.5 L daily >> Note that she is on several medications causing thirst including Benadryl and mirtazapine; these medications will make it harder for her to follow a fluid limit >> Sertraline and lisinopril may well contribute to her chronic hyponatremia (2) CKD (chronic kidney disease) stage 3, GFR 30-59 ml/min: early CKD based on OP labs >> baseline creatinine usually 1.1; better than baseline here; monitor (3) Hypertension: BP uncontrolled here but nearly controlled (SBP generally 130s) as OP -will hold lisinopril given concerns about hyponatremia and monitor BP > may need lasix -continue metoprolol -consider amlodipine History of Present Illness Reason for Consultation: Hyponatremia Requesting Physician: Dr. Snider Attending Physician: Isaak Hou MD History of Present Illness 62-year-old female whom I am asked to see for hyponatremia was admitted overnight following unresponsive episode at home. Past medical history includes hypertension, diet-controlled diabetes, chronic hyponatremia, essential tremor, major depressive disorder, active tobacco abuse, chronic anemia with a baseline hemoglobin of 9, hyperlipidemia, chronic insomnia for which she depends on medication. She was admitted here April 2021 with syncopal episode and acute on chronic hyponatremia. Hyponatremia attributed to low solute diet and presumptive stru ctural lung disease. She followed up once with us and then was unfortunately lost to care. At follow-up visit, she was noted to be drinking more than 100 ounces of daily fluid intake. she had been advised to limit fluid intake to 60 ounces unless out in heat in which case up to 90 ounces was okay. Patient reported at admission last evening that she follows a 32 ounce daily fluid limit. She tells me today she follows 1500 mL limit at home. Her presenting sodium at 2200 on January 05 was 123; serum osmolality was 263. Urine osmolality 89 and urine sodium 17. She received a liter of normal saline on presentation. By January 06 at 8 AM, sodium was 133. She was started at 330 this morning on D5 water at 60 mL hourly. She is on a 1.5 L fluid limit currently. Overnight she also had nonsustained ventricular tachycardia on cardiac rehabilitation program director. Cardiology is evaluating the patient today. Patient feels well on my evaluation today > denies thirst, fall prior to admission, n/v, dypsnea. she has a stable chronic cough. no edema. no new/worrisome voiding concerns. denies nsaid use prior to admission. tells me she is absolutely dependent on benadryl for sleep though knows it makes her thirsty. Allergies Allergy/AdvReac Type Severity Reaction Status Date / Time Iodinated Contrast Media Allergy Severe reddness, Verified 01/06/23 00:42 swelling Home Medications Medication Instructions Recorded Confirmed Type aspirin 81 mg tablet,delayed 81 mg PO PM ##0 10/17/10 01/06/23 History release gabapentin 800 mg tablet 800 mg PO TID #0 tabs 08/05/12 01/06/23 History atorvastatin 40 mg tablet 40 mg PO PM ##0 07/27/15 01/06/23 History melatonin 10 mg tablet 20 mg PO HS ##0 07/27/15 01/06/23 History pantoprazole 40 mg tablet,delayed 40 mg PO QAM ##0 07/27/15 01/06/23 History release primidone 50 mg tablet 50 mg PO TID ##0 07/27/15 01/06/23 History diphenhydramine HCl 25 mg capsule 25 mg PO HS PRN Sleep #0 tabs 06/13/16 History (Benadryl) lisinopril 10 mg tablet 10 mg PO QAM 05/11/21 01/06/23 History metoprolol succinate 25 mg 25 mg PO QAM 05/11/21 01/06/23 History tablet,extended release 24 hr sertraline 100 mg tablet 50 mg PO HS 05/11/21 01/06/23 History lorazepam 0.5 mg tablet 0.5 mg PO BID PRN Anxiety 07/06/21 01/06/23 History mirtazapine 30 mg tablet 30 mg PO HS 07/06/21 01/06/23 History nitroglycerin 0.4 mg sublingual 0.4 mg sublingual UD PRN Chest Pain 07/06/21 01/06/23 History tablet Patient History Medical History (Updated 01/06/23 @ 10:27 by Rachel Burgos MD, PhD) Anemia Asthma Chronic hyponatremia CKD (chronic kidney disease) stage 3, GFR 30-59 ml/min CKD 3A based on OP labs [id number] Diabetes mellitus, type 2 diet controlled 04/2021 Essential tremor GERD (gastroesophageal reflux disease) Hyperlipidemia Hypertension Major depressive disorder Tobacco abuse Family History Father Hypertension Heart disease Social History Smoking Status: Current every day smoker Tobacco Type: Cigarettes Cigarettes Per Day: 1 PPD; Second Hand Exposure: No; Tobacco Cessation Education Requested by Patient: No Hx Alcohol Use: No Hx Substance Use: No Preferred Language: Persian Communication Ability: Effective Engineering And Development Director Required: No Beliefs That Will Affect Care: None Current Living Situation: Alone Other Information That Helps Us Care for You: No Feels Safe at Home: Yes Safety Concerns: Feels Safe At This Time Assistive Devices: None Review of Systems Review of Systems: All systems reviewed & are unremarkable except as noted in HPI & below Physical Exam Constitutional: well developed and well nourished; no acute distress Eyes: EOM intact bilaterally ENMT: Ears: no external ear abnormality Nose: no external nose abnormality Mouth: + dry oral mucous membranes (very) Neck: no nuchal rigidity Respiratory: normal respiratory effort Auscultation: + diminished lung sounds Cardiovascular: RRR, no murmur, no edema Gastrointestinal (Abdomen): Inspection/Auscultation: normal bowel sounds Percussion/Palpation: abdomen soft; abdomen nontender Musculoskeletal: Extremities: strength 5/5 throughout Skin: no rashes, warm and dry Neurologic: cabrera, fluent speech, no tremor Psychiatric: Orientation: alert and oriented x 3 Results & Data ([facility]) Vital Signs (Past 12 Hours) Vital Signs Temp Pulse Pulse Pulse Resp BP BP 01/06/23 08:15 36.5 C 77 20 169/76 H 01/06/23 07:03 01/06/23 06:06 89 01/06/23 06:00 01/06/23 06:00 36.5 C 84 18 01/06/23 06:00 01/06/23 04:54 68 20 01/06/23 04:36 68 01/06/23 03:00 70 18 01/06/23 00:35 76 01/06/23 01:00 75 16 01/05/23 23:57 77 18 01/05/23 22:49 01/05/23 22:04 01/05/23 21:57 36.6 C 73 18 151/84 H BP Pulse Ox Pulse Ox O2 Del Method O2 Del Method 01/06/23 08:15 97 Room Air 01/06/23 07:03 150/77 H 97 Room Air 01/06/23 06:06 01/06/23 06:00 Room Air 01/06/23 06:00 138/91 95 Room Air 01/06/23 06:00 95 Room Air 01/06/23 04:54 150/79 H 95 Room Air 01/06/23 04:36 01/06/23 03:00 147/74 H 94 Room Air 01/06/23 00:35 01/06/23 01:00 135/81 94 Room Air 01/05/23 23:57 156/78 H 97 Room Air 01/05/23 22:49 98 Room Air 01/05/23 22:04 Room Air 01/05/23 21:57 99 Room Air Laboratory Results 01/06/23 07:44 01/06/23 07:44 Diagnostic Findings Both chest x-ray and head CT without acute process
[2023-01-06 09:54] LABS: Estimated Average Glucose 128 mg/dl; Hemoglobin A1C 6.1 % (4.5-5.6)
--- NOTE | 2023-01-06 10:07 | Cardiology Consultation ---
Date of Consultation January 06, 2023 Assessment & Plan (1) Unresponsive episode: (2) Hyponatremia: (3) PSVT (paroxysmal supraventricular tachycardia): (4) Anemia: (5) Essential tremor: (6) Diabetes mellitus, type 2: Plan Patient admitted after a reported unresponsive episode after taking 3 different sleeping aids Patient had a nonsustained episode of narrow complex tachycardia at 0 745 this morning Telemetry personally reviewed by me, paroxysmal supraventricular tachycardia Patient did notice a slight fluttering sensation at that time without any other symptoms Agree with the addition of low-dose beta-maynor and obtain 2D echocardiogram Electrolytes should be followed and maintained with a magnesium greater than 2 and potassium of 4-5 May consider outpatient Zio patch monitor No other cardiac testing or intervention indicated at this time History of Present Illness Reason for Consultation: nonsustained episode tachycardia Requesting Physician: SONAL Attending Physician: Isaak Hou MD History of Present Illness Ms. Beltran is a very pleasant 62-year-old woman who presented to [facility] emergency department on 01/05/2023 with a reported witnessed unresponsive episode. The patient states that she was in her usual state of health yesterday and she took her 4 sleeping aids; Remeron, melatonin, 100 mg of diphenhydramine along with Tylenol PM. Shortly thereafter she was talking with her daughter when she suddenly fell asleep. The daughter became concerned and EMS was summoned. The patient states that she believes she simply fell asleep. She denied any cardiac complaints around the event specifically denying any associated chest pain, shortness of breath, palpitations, lightheadedness or dizziness. She was admitted to telemetry and at 0 45 on 11/05/2023 a short burst of tachycardia was found on telemetry and cardiology was consulted. She states that she did notice a brief fluttering sensation in her chest during that time. She denied any associated symptoms nor any previous similar episodes. Allergies Allergy/AdvReac Type Severity Reaction Status Date / Time Iodinated Contrast Media Allergy Severe reddness, Verified 01/06/23 00:42 swelling Home Medications Medication Instructions Recorded Confirmed Type aspirin 81 mg tablet,delayed 81 mg PO PM ##0 10/17/10 01/06/23 History release gabapentin 800 mg tablet 800 mg PO TID #0 tabs 08/05/12 01/06/23 History atorvastatin 40 mg tablet 40 mg PO PM ##0 07/27/15 01/06/23 History melatonin 10 mg tablet 20 mg PO HS ##0 07/27/15 01/06/23 History pantoprazole 40 mg tablet,delayed 40 mg PO QAM ##0 07/27/15 01/06/23 History release primidone 50 mg tablet 50 mg PO TID ##0 07/27/15 01/06/23 History diphenhydramine HCl 25 mg capsule 25 mg PO HS PRN Sleep #0 tabs 06/13/16 01/06/23 History (Benadryl) lisinopril 10 mg tablet 10 mg PO QAM 05/11/21 01/06/23 History metoprolol succinate 25 mg 25 mg PO QAM 05/11/21 01/06/23 History tablet,extended release 24 hr sertraline 100 mg tablet 50 mg PO HS 05/11/21 01/06/23 History lorazepam 0.5 mg tablet 0.5 mg PO BID PRN Anxiety 07/06/21 01/06/23 History mirtazapine 30 mg tablet 30 mg PO HS 07/06/21 01/06/23 History nitroglycerin 0.4 mg sublingual 0.4 mg sublingual UD PRN Chest Pain 07/06/21 01/06/23 History tablet Patient History Medical History Anemia Asthma Chronic hyponatremia Diabetes mellitus, type 2 diet controlled 04/2021 Essential tremor GERD (gastroesophageal reflux disease) Hyperlipidemia Hypertension Major depressive disorder Tobacco abuse Family History Father Hypertension Heart disease Social History Smoking Status: Current every day smoker Tobacco Type: Cigarettes Cigarettes Per Day: 1 PPD; Second Hand Exposure: No; Tobacco Cessation Education Requested by Patient: No Hx Alcohol Use: No Hx Substance Use: No Preferred Language: Cameroonian 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 No acute distress. HEENT: Normocephalic, atraumatic. Pupils equal, round and reactive to light and accommodation. Extraocular muscles are intact. Anicteric sclera. Moist mucous membranes. Neck: No JVD. No bruit. Cardiovascular: Regular. Positive S-4. Normal S-1 and S-2. No S-3. No murmurs or rubs. Pulmonary: Clear to auscultation B/L. No rales, rhonchi or wheezing Abdomen: Bowel sounds x 4, soft. No rebound, guarding or tenderness. No organomegaly. Extremities: No clubbing, cyanosis or edema. +2 pedal pulses bilaterally. Skin: Warm and dry. Results & Data ([facility]) Vital Signs (Past 12 Hours) Vital Signs Temp Pulse Pulse Pulse Resp BP BP 01/06/23 08:15 36.5 C 77 20 169/76 H 01/06/23 07:03 150/77 H 01/06/23 06:06 89 01/06/23 06:00 01/06/23 06:00 36.5 C 84 18 138/91 01/06/23 06:00 01/06/23 04:54 68 20 150/79 H 01/06/23 04:36 68 01/06/23 03:00 70 18 147/74 H 01/06/23 00:35 76 01/06/23 01:00 75 16 135/81 01/05/23 23:57 77 18 156/78 H 01/05/23 22:49 Pulse Ox Pulse Ox O2 Del Method O2 Del Method 01/06/23 08:15 97 Room Air 01/06/23 07:03 97 Room Air 01/06/23 06:06 01/06/23 06:00 Room Air 01/06/23 06:00 95 Room Air 01/06/23 06:00 95 Room Air 01/06/23 04:54 95 Room Air 01/06/23 04:36 01/06/23 03:00 94 Room Air 01/06/23 00:35 01/06/23 01:00 94 Room Air 01/05/23 23:57 97 Room Air 01/05/23 22:49 98 Room Air
[2023-01-06] MEDS: MAGNESIUM OXIDE 400 MG TAB PO SCH ×2 (13:18→20:17)
--- NOTE | 2023-01-06 15:06 | Electrocardiogram Report ---
Test Reason : Blood Pressure : / mmHG Vent. Rate : 074 BPM Atrial Rate : 074 BPM P-R Int : 178 ms QRS Dur : 088 ms QT Int : 428 ms P-R-T Axes : 077 002 038 degrees QTc Int : 475 ms Normal sinus rhythm Septal infarct , age undetermined Abnormal ECG When compared with ECG of 06-JUL-2021 17:06, Septal infarct is now Present Nonspecific T wave abnormality now evident in Anterior leads Confirmed by Magdaleno Trujillo ([id number]) on 01/06/2023 3:06:15 PM Referred By: REFERRED SELF Confirmed By:Magdaleno Trujillo
[2023-01-06 15:50] LABS: BUN Creatinine Ratio 9.9 (10-20); Calcium 8.8 mg/dl (8.5-10.1); Creatinine Clr Calc Pharmacy 46.9 ml/min; Est GFR (African American) 55.1 ml/min; Est GFR (Non-African American) 47.6 ml/min; Potassium 4.9 mmol/L (3.5-5.1)
[2023-01-06] MEDS ORDERED: DEXTROSE 5% 1,000 ML IV STA (16:54)
[2023-01-06] MEDS ORDERED: ATORVASTATIN 40 MG TAB PO SCH (21:00)
[2023-01-06] MEDS ORDERED: MELATONIN 3 MG TAB PO SCH (21:00)
[2023-01-06] MEDS ORDERED: SERTRALINE HCL 50 MG TABLET PO SCH (21:00)
[2023-01-06] MEDS ORDERED: MIRTAZAPINE TAB 15 MG TAB PO SCH (21:00)
[2023-01-06] MEDS ORDERED: ASPIRIN 81 MG ECTAB PO SCH (21:00)
--- NOTE | 2023-01-07 08:00 | Nephrology Progress Note ---
Date of Service January 07, 2023 Assessment & Plan (1) Hyponatremia: Plan: Worsening of chronic hyponatremia with baseline sodium in the high 120s consistently from June 2021 through November 2021. We are unable to establish acuity of this change in sodium. Based on her admission studies, the patient clearly presented with worsened hyponatremia from polydipsia. She then corrected too quickly from 1 23->1 33 in a matter of about 8 hours. Target sodium for 2/16 AM is 132 or less Pt has done well at meeting this target and will stop D5W if not already done Maintain eukalemia; appropriate today - continue fluid restriction 1.5 L daily >> Note that she is on several medications causing thirst including Benadryl and mirtazapine; these medications will make it harder for her to follow a fluid limit >> Sertraline and lisinopril may well contribute to her chronic hyponatremia >> have changed lisinopril to amlodipine 2.5 mg daily will cont to follow in house; if pt is d/c, pls use the following [facility] d/c recommendations: -stop lisinopril and start amlodipine 2.5 mg daily -d/c on 1.5 L fluid limit -bmp, urine osms, serum osms, rd urine sodium about one week after d/c to be ordered by nephro RN -hospital d/c appt w/ me in 2-4 weeks (2) CKD (chronic kidney disease) stage 3, GFR 30-59 ml/min: Plan: early CKD based on OP labs >> baseline creatinine usually 1.1; at baseline here; monitor (3) Hypertension: Plan: BP uncontrolled here but nearly controlled (SBP generally 130s) as OP -stopped lisinopril given concerns about hyponatremia and monitor BP > may need lasix -continue metoprolol -as above amlodipine Admission and Anticipated Discharge Date Admission Date: January 06, 2023 Subjective no interval events. daughter at bedside. Daughter wondering about recurrent wound patient's right lower extremity. Patient denies shortness of breath, lower extremity edema, nausea vomiting, ambulatory dysfunction Review of Systems Review of Systems: All systems reviewed & are unremarkable except as noted in Subjective Physical Exam Constitutional: well developed and well nourished; no acute distress Eyes: EOM intact bilaterally ENMT: Ears: no external ear abnormality Nose: no external nose abnormality Mouth: + dry oral mucous membranes (very) Neck: no nuchal rigidity Respiratory: normal respiratory effort Auscultation: + diminished lung sounds Cardiovascular: RRR, no murmur, no edema Gastrointestinal (Abdomen): Inspection/Auscultation: normal bowel sounds Percussion/Palpation: abdomen soft; abdomen nontender Musculoskeletal: Extremities: strength 5/5 throughout Skin: no rashes, warm and dry Psychiatric: Orientation: alert and oriented x 3 Results & Data ([facility]) Vital Signs (Past 12 Hours) Vital Signs Temp Pulse Pulse Resp BP Pulse Ox O2 Del Method 01/07/23 02:35 36.3 C L 64 18 107/71 93 Room Air 01/06/23 22:15 67 01/06/23 22:44 36.7 C 69 18 105/65 93 Room Air Laboratory Results 01/06/23 07:44 01/07/23 07:04
[2023-01-07 08:09] LABS: Calcium 9.1 mg/dl (8.5-10.1); Creatinine Clr Calc Pharmacy 52.8 ml/min; Est GFR (Non-African American) 55.2 ml/min; Magnesium 2.2 mg/dl (1.7-2.4); Phosphorus 4.5 mg/dl (2.5-4.9); Potassium 4.4 mmol/L (3.5-5.1)
[2023-01-07] MEDS ORDERED: amLODIPine BESYLATE 5 MG TAB PO SCH ×2 (09:00)
[2023-01-07] MEDS: NICOTINE 21 MG/24 HR TDSY TD SCH (09:06)
[2023-01-07] MEDS: INSULIN ASPART PER UNIT SC SCH ×2 (09:06→12:40)
[2023-01-07] MEDS: MAGNESIUM OXIDE 400 MG TAB PO SCH (09:07)
[2023-01-07] MEDS: PRIMIDONE 50 MG TAB PO SCH ×2 (09:07→13:47)
[2023-01-07] MEDS: GABAPENTIN 800 MG TAB PO SCH ×2 (09:07→13:47)
[2023-01-07] MEDS: METOPROLOL SUCC 25MG EXT REL TAB PO SCH (09:07)
[2023-01-07] MEDS: PANTOprazole 40 MG TAB PO SCH (09:07)
--- NOTE | 2023-01-07 13:59 | Discharge Summary ---
Date of Service January 07, 2023 Admission HPI Per Admitting Provider History obtained from patient and records. Medical history significant for hypertension, hyperlipidemia, DM2 diet- controlled, GERD, essential tremor, chronic hyponatremia, chronic anemia (baseline hemoglobin 9), ongoing tobacco abuse. 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 60 ounce daily fluid restriction recommended by Nephrology on discharge. Patient took all her night pills last night and was subsequently noted to have decreased responsiveness by family. No witnessed seizures, tongue biting, incontinence. Patient denies headache, chest pain, SOB. Last seen [facility]. Patient claims to be compliant with 32 ounce daily fluid restriction. Medical Historyas above Surgical History : Hysteroscopy, ovarian cyst removal, tonsillectomy/adenoidectomy, strabismus surgery Family History : Heart disease, bipolar disorder, stroke Personal/Social history : Half pack daily, no EtOH intake, prior work as a [employer] Admission Exam Per Admitting Provider GENERAL: Comfortable, pleasant, no respiratory distress SKIN: Pallor, warm HEENT: Bespectacled, pale palpebral conjunctivae, no ptosis, dry buccal mucosa NECK : Supple, no tenderness CHEST : CTA, no tenderness HEART : RRR, no obvious murmurs ABDOMEN: No distention, nontender EXTREMITIES : No LE swelling/tenderness, no other conspicuous deformities noted NEUROLOGIC : Coherent, no facial asymmetry, no other gross focality Principal Diagnosis Hyponatremia Unresponsive episode PSVT Discharge Exam GENERAL: WD/WN F in NAD HEENT: NC/AT. EOMI. pale palpebral conjunctivae NECK : Supple, no tenderness CHEST : CTAB HEART : RRR, no obvious murmurs ABDOMEN: No distention, nontender EXTREMITIES : No LE swelling/tenderness, moves extremities SKIN: Pallor, warm NEUROLOGIC : awake and alert, no facial asymmetry, speech fluent, moves extremities Discharge Data Allergies Allergy/AdvReac Type Severity Reaction Status Date / Time Iodinated Contrast Media Allergy Severe reddness, Verified 01/06/23 00:42 swelling Consultations 01/05/23 23:50 ED Decision to Admit Stat 01/06/23 06:00 Consult Nephrology Routine 01/06/23 07:43 Consult Cardiology Routine Ordered Studies 01/05/23 22:42 CT head/brain wo con Urgent FINDINGS: Brain parenchyma: There is age-related involutional change noting moderate subcortical and periventricular microangiopathic disease. There is no hemorrhage, mass effect, or evidence of acute territorial ischemia by CT criteria. Pace-white matter differentiation is preserved. No extra-axial fluid collection is seen. Chronic lacunar infarcts are noted in the right caudate head and the left thalamus. Ventricles, sulci, cisterns: Prominent secondary to involutional change. Intracranial vasculature: There is atherosclerotic calcification of the cavernous carotid arteries. Calvarium: Unremarkable. Sinuses and mastoids: The visualized paranasal sinuses are clear. The mastoid air cells are well pneumatized. Orbits: The bony orbits are grossly intact. IMPRESSION: There is no hemorrhage, mass effect, or evidence of acute territorial ischemia by CT criteria. Hospital Course (1) Unresponsive episode: Multifactorial : Multiple neuropsychotropic medications Acute on chronic hyponatremia, ? SIADH, hx psychogenic polydipsia, patient claims to be compliant with 32 ounce daily fluid restriction Pt presented with unresponsive episode. Took several sleeping medications. In addition found to be hyponatremic. After being admitted, patient had palpitations, PSVT noted. Echo was obtained, cardiology and nephrology consulted. Sodium level now improved. Blood work/hyponatremia work-up to be continued as outpatient. Nephrology follow-up to be arranged. Fluid restriction 1.5 L to be continued as outpatient. Recommend to decrease her sleeping aid medications, stopping Benadryl. Lisinopril was also stopped by nephrology. Amlodipine 2.5 mg started in addition to her metoprolol. Echo obtained LV cavity is small. There is moderate concentric LVH. LV wall motion is normal. LV is hyperdynamic. EF greater than 70%. Grade 1 diastolic dysfunction. There is no significant valvular disease. Per cardiology, patient can continue beta-maynor, and can consider Zio patch monitor as outpatient. Hypertension, BP now controlled, see above. Hyperlipidemia, on statin Rx DM2 diet-controlled, well-controlled as of recent hemoglobin A1c of 27 November 2021 Essential tremor, stable on primidone Chronic anemia, hemoglobin at baseline Ongoing tobacco abuse, Nicotine patch Patient advised about smoking cessation, and she is in agreement Total Time Total Time Spent Total Time Spent (In Minutes): 40 Discharge Plan Discharge Items Patient Disposition: Home - Self-Care Reason For Visit: HYPONATREMIA Discharge Diagnosis: Hyponatremia Unresponsive episode PSVT Activity: Per Instructions section Non-emergency contact: Primary Care Provider and Concession Stand Attendant Call non-emergency contact if: you have any medication questions and your symptoms worsen Follow-up/Referrals: Jacque Doe PA-C [Primary Care Provider] - (Date & Time 01/13/2023 2:20 PM Provider González Gilbert MD Department [facility] ) Diet: Carb Consistent or DM2 and Heart Healthy Fluids: 1500ml (6 cups) Addtl Attending Provider Instructions: Follow-up with your primary care physician, the appointment was scheduled for you for January 13. As discussed, recommend fluid restriction of 1.5 L a day. Stop taking lisinopril. You were started on amlodipine 2.5 mg daily, in addition to your home metoprolol. Also recommend not using Benadryl, as your sleeping aid. You will need blood work - bmp, urine osms, serum osms, random urine sodium about one week after discharge fro the hospital. You will need to follow up with nephrology - Dr. Burgos in 2-4 weeks It is strongly recommended that you quit smoking. Consider calling [employer] smoke cessation line. Pending Studies at Discharge: No Stand-Alone Forms: My [facility] bright box, Smoking Cessation Medications and DC Order Prescriptions: New amlodipine [Norvasc] 5 mg Tablet 2.5 mg PO QAM 30 Days Qty: 15 0RF Continued aspirin 81 mg Tablet,Delayed Release (Dr/Ec) 81 mg PO PM Qty: 0 gabapentin 800 mg Tablet 800 mg PO TID Qty: 0 atorvastatin 40 mg Tablet 40 mg PO PM Qty: 0 primidone 50 mg Tablet 50 mg PO TID Qty: 0 pantoprazole 40 mg Tablet,Delayed Release (Dr/Ec) 40 mg PO QAM Qty: 0 melatonin 10 mg Tablet 20 mg PO HS Qty: 0 nitroglycerin 0.4 mg tablet, sublingual 0.4 mg sublingual UD PRN (Reason: Chest Pain) lorazepam 0.5 mg tablet 0.5 mg PO BID PRN (Reason: Anxiety) mirtazapine 30 mg tablet 30 mg PO HS sertraline 100 mg tablet 50 mg PO HS lisinopril 10 mg tablet 10 mg PO QAM metoprolol succinate 25 mg tablet extended release 24 hr 25 mg PO QAM Discontinued diphenhydramine HCl [Benadryl] 25 mg Capsule 25 mg PO HS PRN (Reason: Sleep) Qty: 0 Discharge Orders: Discharge Order (Routine); Ordered 01/07/23 Ordered By: Isaak Hoyt/Other Patient Handouts: Managing Type 2 Diabetes Admission Data Admit Date/Time: 01/06/23 03:04 Attending Provider: Isaak Hou Admit Provider: Bashir Snider Primary Care Provider: Jacque Doe Other Providers: Bashir Snider ; Rachel Burgos ; Pankaj Gonzalez ; Kamini Adhikari ; Mauri Torres ; Leighann Darnell ; Cha Tobin ; Tee Hunter ; Jose Altamirano ; Khadar Hair ; Mina Mae ; Tiago Colin ; Hermilo Mary ; Angelia Goddard ; Janie Rico ; Kacy Becker ; Epifanio Green
== END 2023-01-07 15:38 | disposition home or self-care (01) | DRG 644 ==
LOC: ED 21:54 → 2N 01-06 03:04